=== PATIENT | female | born 1965 | race Caucasian/White ===

== ENCOUNTER 2017-02-22 14:20 | Inpatient (IN) | payer MEDICARE, OTHER ==
[2017-02-22 14:20] VITALS: BMI 49.6
[2017-02-22] MEDS ORDERED: Albuterol-Ipratrop 3 mg / 0.5 (3 ml) UD IH STA ×3 (14:47→14:48)
--- NOTE | 2017-02-22 14:51 | C.PDOC ---
History Of Present Illness 51 y/o F c PMHx asthma, chronic back pain p/w shortness of breath x 1 week. Reports shortness of breath typical of her asthma. She reports cough with bilateral thoracic pain worse with coughing or movement. She reports subjective fever. Denies vomiting, diarrhea, leg swelling, injury. Never intubated or admitted for asthma. Time Seen by Provider: 02/22/17 14:38 Chief Complaint (Nursing): Shortness Of Breath Past Medical History Vital Signs: Last Vital Signs Temp 98.3 F 02/22/17 17:24 Pulse 109 H 02/22/17 17:24 Resp 20 02/22/17 17:24 BP 126/48 L 02/22/17 17:24 Pulse Ox 94 L 02/22/17 18:01 - Medical History PMH: Anxiety, Asthma, Back Problems, COPD, Depression, HTN Denies: Chronic Kidney Disease Surgical History: Hernia Repair - [facility] Procedures OTH & OPEN REP OTH HERNIA OF ANTER ABD WALL W [facility] OR PROSTH (11/02/13) Family History: States: No Known Family Hx - Social History Hx Tobacco Use: No Hx Alcohol Use: No Hx Substance Use: No - Immunization History Hx Tetanus Toxoid Vaccination: No Hx Influenza Vaccination: Yes Hx Pneumococcal Vaccination: No Review Of Systems Except As Marked, All Systems Reviewed And Found Negative. Respiratory: Positive for: Shortness of Breath Gastrointestinal: Negative for: Vomiting Genitourinary: Negative for: Dysuria Physical Exam - Physical Exam Additional Physical Exam Comments: Constitutional: No acute distress. Obese Head: Normocephalic. Atraumatic. Eyes: PERRL. EOMI ENT: Moist mucous membranes. Neck: Supple. Cardiovascular: Regular rate. Radial pulses 2+ bilaterally. Chest: No tenderness. Respiratory: Decreased breath sounds diffusely. GI: Soft. Nontender. Nondistended. Back: No CVA tenderness. No midline tenderness. Musculoskeletal: No tenderness or swelling of extremities. Skin: No rash. Neurologic: Alert, no focal deficit. ED Course And Treatment - Laboratory Results Result Diagrams: 02/22/17 15:21 02/22/17 16:11 O2 Sat by Pulse Oximetry: 94 Medical Decision Making Medical Decision Making: EKG: Ordered, reviewed, and independently interpreted the EKG. Rate: 100 BPM Rhythm: Sinus Rhythm Interpretation: No ST-segment elevations. Accession No. : [id number] Patient Name / ID : HARINI CALIXTO / [id number] Exam Date : 02/22/2017 14:51:27 ( Approved ) Study Comment : Sex / Age : F / 51Y Creator : Meek Coombs Dictator : Meek Coombs Welder Fitter Arc : Social Insurance Administrator : Meek Coombs Approver2 : Report Date : 02/22/2017 17:58:35 My Comment : HISTORY: dyspnea, L sided rib pain COMPARISON: Comparison is made to the previous study dated 11/02/2013 TECHNIQUE: Chest PA and lateral FINDINGS: LUNGS: No evidence of new infiltrate or consolidation in the lungs. Mild hyperinflation of the lungs and prominent lung markings are again seen. PLEURA: No significant pleural effusion identified. No pneumothorax apparent. CARDIOVASCULAR: Normal. OSSEOUS STRUCTURES: No significant abnormalities. VISUALIZED UPPER ABDOMEN: Normal. OTHER FINDINGS: None. IMPRESSION: No significant interval change since the previous exam. Patient with normal vital signs at bedside. Pulse oximetry on room air 98% with good waveform. Patient had an episode of abdominal pain which she states occurs "all the time" at home. I administered morphine for this. Otherwise, the patient is without acute CXR findings, pulse oximetry normal. Will discharge, continue steroids, albuterol, and Z pack. I instructed her to obtain a referral for general surgery from her PMD for her chronic abdominal pains. Disposition - Disposition Disposition: HOME/ ROUTINE Disposition Time: 17:19 Condition: STABLE Additional Instructions: Follow up with General Surgery for your chronic abdominal pains. Prescriptions: Albuterol 0.083% [Albuterol Sulfate 3 Ml] 3 ml IH Q4 #150 neb Prednisone [Deltasone] 3 tab PO DAILY #12 tablet Azithromycin [Zithromax] 2 tab PO DAILY #6 tab Instructions: Asthma (ED) - Clinical Impression Clinical Impression: Asthma exacerbation
[2017-02-22] MEDS ORDERED: Albuterol-Ipratrop 3 mg / 0.5 (3 ml) UD ONE ×2 (15:01→15:13)
[2017-02-22 15:30] LABS: BASO # 0.1 K/uL (0.0-0.2); BASO % 0.6 % (0.0-2.0); EOS # 0.1 K/uL (0.0-0.7); EOS % 0.9 % (0.0-4.0); HEMATOCRIT 43.2 % (34.0-47.0); LYMPH # 0.8 K/uL (1.0-4.3); LYMPH % 6.1 % (20.0-40.0); MEAN CELL VOLUME 82.4 fL (81.0-99.0); MEAN CORPUSCULAR HEMOGLOBIN 26.6 pg (27.0-31.0); MEAN CORPUSCULAR HGB CONC 32.3 g/dL (33.0-37.0); MEAN PLATELET VOLUME 9.1 fL (7.2-11.7); MONO # 0.5 K/uL (0.0-0.8); MONO % 4.1 % (0.0-10.0); PLATELET COUNT 303 K/uL (130-400); RED CELL DISTRIBUTION WIDTH 14.9 % (11.5-14.5); WHITE BLOOD COUNT 12.4 K/uL (4.8-10.8)
[2017-02-22 16:22] LABS: CHLORIDE 99 mmol/L (98-107); SODIUM 135 mmol/L (132-148)
[2017-02-22 16:23] LABS: POTASSIUM 3.8 mmol/L (3.6-5.2)
[2017-02-22 16:25] LABS: ALKALINE PHOSPHATASE 82 U/L (38-126); ALT/SGPT 13 U/L (9-52); AST/SGOT 19 U/L (14-36); BILIRUBIN,TOTAL 0.8 mg/dL (0.2-1.3); BLOOD UREA NITROGEN 10 mg/dL (7-17); CARBON DIOXIDE 21 mmol/L (22-30); GFR AFRICAN-AMERICAN > 60; GLUCOSE,RANDOM 135 mg/dL (65-105); TOTAL PROTEIN 7.4 g/dL (6.3-8.3)
[2017-02-22 16:26] LABS: CALCIUM 8.6 mg/dl (8.6-10.4)
[2017-02-22 17:49] LABS: EOSINOPHIL 2 % (0-4); NEUTROPHIL 83 % (50-75); TOTAL CELLS COUNTED 100
--- NOTE | 2017-02-22 18:00 | RAD ---
HISTORY: dyspnea, L sided rib pain COMPARISON: Comparison is made to the previous study dated 11/02/2013 TECHNIQUE: Chest PA and lateral FINDINGS: LUNGS: No evidence of new infiltrate or consolidation in the lungs. Mild hyperinflation of the lungs and prominent lung markings are again seen. PLEURA: No significant pleural effusion identified. No pneumothorax apparent. CARDIOVASCULAR: Normal. OSSEOUS STRUCTURES: No significant abnormalities. VISUALIZED UPPER ABDOMEN: Normal. OTHER FINDINGS: None. IMPRESSION: No significant interval change since the previous exam.
[2017-02-22] MEDS ORDERED: Morphine 4 MG/ML VIAL ONE (18:17)
--- NOTE | 2017-02-22 21:14 | CP.PCM.HP ---
<Erica Lanier - Last Filed: 02/22/17 21:17> History of Present Illness - History of Present Illness History of Present Illness: CC: "cough and shortness of breath" 51 year old female with PMHx of COPD/emphysema, asthma, chronic back pain, obesity, GERD, depression and anxiety presents for 2 week history of worsening cough and SOB. Patient reports she has been feeling SOB for the past 2 weeks. She uses her inhaler on a daily basis, a couple of times a day. She has not been ambulating much, but when she does she becomes SOB. Admits she came to the hospital because SOB began to worsen over the past 2 days. She reports waking up in the middle of the night with cough and SOB. Admits to subjective fevers yesterday. She is experiencing bilateral rib pain and abdominal pain every time she coughs. Pain is reproducible only with cough. She admits to sick contact (daughter had the flu). She is also experiencing nasal congestion and sore throat for the past 2 days. Denies chills, nausea, vomiting, headache, body aches, dysuria. Admits to chronic constipation. She smokes daily and ambulates with cane. She has never been intubated and denies O2 at home. PMHx: COPD/emphysema, asthma, obesity, GERD, depression and anxiety, chronic back pain, OA. Medications: Albuterol nebs, rescue inhaler, prednisone. Allergies: NKDA Surgery Hx: Bariatric Sx, umbilical Hernia repair, hysterectomy. Social Hx: smokes 2 cigarets per day for the past 20 years, denies alcohol or illicit drug use. Family Hx: mother with brain tumor, father with tobacco abuse. PMD: Dr. Jeong. Present on Admission - Present on Admission Any Indicators Present on Admission: No Review of Systems - Constitutional Constitutional: Fever. absent: Chills, Headache, Night Sweats - EENT Eyes: absent: Change in Vision Ears: absent: Dizziness Nose/Mouth/Throat: Nasal Congestion, Nasal Discharge, Sinus Pressure, Sore Throat. absent: Epistaxis - Cardiovascular Cardiovascular: Chest Pain, Dyspnea on Exertion. absent: Chest Pain at Rest, Chest Pain with Activity, Edema, Syncope - Respiratory Respiratory: Cough, Dyspnea, Dyspnea on Exertion, Wheezing. absent: Excessive Mucous Production - Gastrointestinal Gastrointestinal: Constipation. absent: Abdominal Pain, Bloating, Diarrhea, Nausea, Vomiting - Genitourinary Genitourinary: absent: Difficulty Urinating, Dysuria - Musculoskeletal Musculoskeletal: Back Pain. absent: Arthralgias, Numbness, Tingling - Integumentary Integumentary: Dry Skin. absent: Lesions - Neurological Neurological: absent: Numbness, Tingling, Weakness - Psychiatric Psychiatric: Anxiety, Depression - Endocrine Endocrine: Fatigue. absent: Palpitations - Hematologic/Lymphatic Hematologic: absent: Easy Bruising, Lymphadenopathy Past Patient History - Past Medical History & Family History Past Medical History?: Yes - Past Social History Smoking Status: Light Smoker < 10 Cigarettes Daily - CARDIAC Hx Hypertension: Yes - PULMONARY Hx Asthma: Yes Hx Chronic Obstructive Pulmonary Disease (COPD): Yes - NEUROLOGICAL Hx Neurological Disorder: No - HEENT Hx HEENT Problems: No - RENAL Hx Chronic Kidney Disease: No - ENDOCRINE/METABOLIC Hx Endocrine Disorders: No - HEMATOLOGICAL/ONCOLOGICAL Hx Blood Disorders: No - INTEGUMENTARY Hx Dermatological Problems: No - MUSCULOSKELETAL/RHEUMATOLOGICAL Hx Musculoskeletal Disorders: Yes Hx Back Pain: Yes - GASTROINTESTINAL Hx Gastrointestinal Disorders: Yes Other/Comment: HISTORY OF HERNIA - GENITOURINARY/GYNECOLOGICAL Hx Genitourinary Disorders: No - PSYCHIATRIC Hx Anxiety: Yes Hx Depression: Yes Hx Substance Use: No - SURGICAL HISTORY Hx Surgeries: Yes Hx Hysterectomy: Yes Other/Comment: ABDOMINAL HERNIA REPAIR ALMOST 2 YEARS AGO PER PT - ANESTHESIA Hx Anesthesia: Yes Hx Anesthesia Reactions: No Meds Home Medications: Home Medication List Medication Instructions Recorded Confirmed Type Albuterol 0.083% [Albuterol 3 ml IH Q4 #150 neb 02/22/17 Rx Sulfate 3 Ml] Azithromycin [Zithromax] 2 tab PO DAILY #6 tab 02/22/17 Rx Prednisone [Deltasone] 3 tab PO DAILY #12 tablet 02/22/17 Rx Allergies/Adverse Reactions: Allergies Allergy/AdvReac Type Severity Reaction Status Date / Time No Known Allergies Allergy Verified 02/22/17 14:26 Physical Exam - Constitutional Appears: Non-toxic, In Acute Distress, Agitated - Head Exam Head Exam: NORMAL INSPECTION, NORMOCEPHALIC - Eye Exam Eye Exam: EOMI, Normal appearance - ENT Exam ENT Exam: Mucous Membranes Moist - Neck Exam Neck exam: Positive for: Full Rom, Normal Inspection - Respiratory Exam Respiratory Exam: Chest Wall Tenderness, Decreased Breath Sounds, Clear to Auscultation Bilateral. absent: Rales, Rhonchi, Wheezes - Cardiovascular Exam Cardiovascular Exam: REGULAR RHYTHM, +S1, +S2 - GI/Abdominal Exam GI & Abdominal Exam: Normal Bowel Sounds, Soft. absent: Distended, Guarding, Hernia, Tenderness - Extremities Exam Extremities exam: Positive for: full ROM, normal inspection, tenderness. Negative for: pedal edema - Back Exam Back exam: NORMAL INSPECTION. absent: FULL ROM, rash noted - Neurological Exam Neurological exam: Alert, Oriented x3 - Psychiatric Exam Psychiatric exam: Agitated, Anxious - Skin Skin Exam: Dry, Normal Color, Warm Results - Vital Signs Recent Vital Signs: Last Vital Signs Temp 98.4 F 02/22/17 18:44 Pulse 100 H 02/22/17 18:44 Resp 18 02/22/17 18:44 BP 138/67 02/22/17 18:44 Pulse Ox 94 L 02/22/17 18:44 - Labs Result Diagrams: 02/22/17 15:21 02/22/17 16:11 Assessment & Plan (1) Asthma exacerbation Assessment and Plan: Peak flow on admission 200. Patient received 3 Duoneb treatments in the ED, prednisone, tessalon pearls. CXR on admission: No evidence of new infiltrate or consolidation in the lungs. Mild hyperinflation of the lungs and prominent lung markings are again seen. Duoneb Q6H JULIETA Solu-Metdrol 40 mg IVP Q8H Guaifenesin/Codeine Q6H PRN Status: Acute (2) COPD (chronic obstructive pulmonary disease) with emphysema Assessment and Plan: See plan above Status: Acute (3) URI (upper respiratory infection) Assessment and Plan: Azithromycin 500 mg PO Daily Status: Acute (4) Rib pain Assessment and Plan: Secondary to cough. Continue antitussive as above. Motrin 400 mg PO Q6 PRN pain Status: Acute (5) Depression Assessment and Plan: Patient does not know her home medication. Will monitor mood for changes. Status: Acute (6) Anxiety Assessment and Plan: She does not take anything for anxiety. Will monitor mood for changes. Status: Acute (7) Prophylactic measure Assessment and Plan: Pepcid 30 mg PO BID Heparin 5000 SC Q12H SCDs Status: Acute <Bossman Green - Last Filed: 02/23/17 06:09> Results - Vital Signs Recent Vital Signs: Last Vital Signs Temp 97.9 F 02/23/17 00:00 Pulse 99 H 02/23/17 01:04 Resp 22 02/23/17 01:52 BP 118/65 02/23/17 00:00 Pulse Ox 97 02/23/17 01:52 - Labs Result Diagrams: 02/22/17 15:21 02/22/17 16:11 Assessment & Plan - Date & Time Date: 02/23/17 (I have seen and examined the patient. I agree with the findings and plan of care as documented by Dr. Lanier. Patient with asthma exacerbation and history of COPD. Also with URI. Azithromycin. Solumedrol. Nebs and Oxygen. Monitor for acute changes.) Time: 06:08 Attending/Attestation - Attestation I have personally seen and examined this patient.: Yes I have fully participated in the care of the patient.: Yes I have reviewed all pertinent clinical information: Yes
[2017-02-22] MEDS: guaiFENesin-Codeine 100-10mg/5ml Syrup (10ml) UD PO PRN (21:18)
[2017-02-23] MEDS: Albuterol-Ipratrop 3 mg / 0.5 (3 ml) UD INH SCH ×4 (01:04→19:39)
[2017-02-23] MEDS: MethylPREDNISolone 40 mg Vial IVP SCH ×3 (01:14→17:20)
[2017-02-23] MEDS: guaiFENesin-Codeine 100-10mg/5ml Syrup (10ml) UD PO PRN ×3 (03:18→18:31)
[2017-02-23] MEDS: Benzocaine/Menthol (Cepacol) Lozenge MT PRN ×6 (03:19→22:39)
[2017-02-23] MEDS: Fluticasone Nasal 50 mcg/Spray NAS SCH ×2 (03:19→11:49)
[2017-02-23 08:06] LABS: BASO % 0.3 % (0.0-2.0); EOS % 0.2 % (0.0-4.0); HEMATOCRIT 40.9 % (34.0-47.0); LYMPH # 0.6 K/uL (1.0-4.3); LYMPH % 4.5 % (20.0-40.0); MEAN CELL VOLUME 82.6 fL (81.0-99.0); MEAN CORPUSCULAR HEMOGLOBIN 26.9 pg (27.0-31.0); MEAN CORPUSCULAR HGB CONC 32.5 g/dL (33.0-37.0); MEAN PLATELET VOLUME 9.1 fL (7.2-11.7); MONO # 0.2 K/uL (0.0-0.8); MONO % 1.6 % (0.0-10.0); PLATELET COUNT 329 K/uL (130-400); RED CELL DISTRIBUTION WIDTH 14.5 % (11.5-14.5); WHITE BLOOD COUNT 13.4 K/uL (4.8-10.8)
[2017-02-23 08:24] LABS: CHLORIDE 98 mmol/L (98-107); POTASSIUM 4.5 mmol/L (3.6-5.2); SODIUM 133 mmol/L (132-148)
[2017-02-23 08:26] LABS: ALB/GLOB RATIO 1.1 (1.0-2.1); AST/SGOT 22 U/L (14-36); BILIRUBIN,TOTAL 0.8 mg/dL (0.2-1.3); CARBON DIOXIDE 19 mmol/L (22-30); GFR AFRICAN-AMERICAN > 60; TOTAL PROTEIN 7.5 g/dL (6.3-8.3)
[2017-02-23 08:27] LABS: ALKALINE PHOSPHATASE 93 U/L (38-126); ALT/SGPT 13 U/L (9-52); BLOOD UREA NITROGEN 15 mg/dL (7-17); CALCIUM 9.2 mg/dl (8.6-10.4); GLUCOSE,RANDOM 186 mg/dL (65-105); MAGNESIUM 1.9 mg/dL (1.6-2.3); PHOSPHOROUS 2.7 mg/dL (2.5-4.5)
--- NOTE | 2017-02-23 09:15 | CP.PCM.PN ---
<Torito Blue - Last Filed: 02/23/17 19:54> Subjective - Date & Time of Evaluation Date of Evaluation: 02/23/17 Time of Evaluation: 07:55 - Subjective Subjective: PGY-1 medicine note - Dr. Whitmore service Patient seen and examined at bedside, chart reviewed and case discussed. Her cough has not improved and she states that her rib pain had gone away but returned with a bout of heavy coughing. She has received some breathing treatments for shortness of breath and while they have helped, they havent provided complete relief. Admits to tenderness of Right neck. She denies fever, headache, body aches, abdominal pain, nausea, vomiting, diarrhea, constipation, dysuria and any other acute complaints at this time. Objective - Vital Signs/Intake and Output Vital Signs (last 24 hours): Temp Pulse Resp BP Pulse Ox 97.9 F 99 H 22 118/65 97 02/23/17 00:00 02/23/17 01:04 02/23/17 01:52 02/23/17 00:00 02/23/17 01:52 Intake and Output: 02/23/17 02/23/17 06:59 18:59 Intake Total 240 Balance 240 - Medications Medications: Current Medications Albuterol/Ipratropium (Duoneb 3 Mg/0.5 Mg (3 Ml) Ud) 3 ml INH RQ6 JULIETA Last Admin: 02/23/17 08:02 Dose: 3 ml Azithromycin (Zithromax) 500 mg PO DAILY JULIETA Stop: 02/28/17 10:01 Benzocaine/Menthol (Cepacol Sore Throat) 1 vikas MT Q1 PRN PRN Reason: Sore Throat Last Admin: 02/23/17 08:37 Dose: 1 vikas Famotidine (Pepcid) 20 mg PO BID JULIETA Last Admin: 02/23/17 01:25 Dose: 20 mg Fluticasone Propionate (Flonase) 1 spr JOSH DAILY JULIETA Last Admin: 02/23/17 03:19 Dose: 1 spray Guaifenesin/Codeine Phosphate (Guaifenesin/Codeine) 10 ml PO Q6H PRN PRN Reason: Cough and congestion Last Admin: 02/23/17 03:18 Dose: 10 ml Heparin Sodium (Porcine) (Heparin) 5,000 units SC Q12 JULIETA Last Admin: 02/23/17 00:03 Dose: Not Given Ibuprofen (Motrin Tab) 400 mg PO Q6H PRN PRN Reason: Pain, moderate (4-7) Methylprednisolone (Solu-Medrol) 40 mg IVP Q8H [facility] Last Admin: 02/23/17 08:36 Dose: 40 mg - Labs Labs: 02/23/17 07:50 02/23/17 07:50 - Additional Findings Additional findings: - Constitutional Appears: Non-toxic, No Acute Distress - Head Exam Head Exam: NORMAL INSPECTION, NORMOCEPHALIC - Eye Exam Eye Exam: EOMI, Normal appearance - ENT Exam ENT Exam: Mucous Membranes Moist -Tender to palpation of Right neck - Neck Exam Neck exam: Positive for: Full Rom, Normal Inspection - Respiratory Exam Respiratory Exam: Chest Wall Tenderness, Decreased Breath Sounds, Clear to Auscultation Bilateral. absent: Rales, Rhonchi, Wheezes - Cardiovascular Exam Cardiovascular Exam: REGULAR RHYTHM, +S1, +S2 - GI/Abdominal Exam GI & Abdominal Exam: Normal Bowel Sounds, Soft. absent: Distended, Guarding, Hernia, Tenderness - Extremities Exam Extremities exam: Positive for: full ROM, normal inspection, tenderness. Negative for: pedal edema - Back Exam Back exam: NORMAL INSPECTION. absent: FULL ROM, rash noted - Neurological Exam Neurological exam: Alert, Oriented x3 - Psychiatric Exam Psychiatric exam: Agitated, Anxious - Skin Skin Exam: Dry, Normal Color, Warm Assessment and Plan - Assessment and Plan (Free Text) Assessment: (1) Asthma exacerbation Assessment and Plan: Peak flow on admission 200. Patient received 3 Duoneb treatments in the ED, prednisone, tessalon pearls. CXR on admission: No evidence of new infiltrate or consolidation in the lungs. Mild hyperinflation of the lungs and prominent lung markings are again seen. Duoneb Q6H JULIETA Solu-Metdrol 40 mg IVP Q8H Guaifenesin/Codeine Q6H PRN Status: Acute (2) COPD (chronic obstructive pulmonary disease) with emphysema Assessment and Plan: See plan above Status: Acute (3) URI (upper respiratory infection) Assessment and Plan: 02/23: muffling of voice. Right throat tenderness. f/u Vanco trough Wed 4/5 am -CT Neck soft tissue - There is asymmetry of the pyriform sinuses left-side, could represent collected secretion within the left pyriform sinus. Asymmetry of the vallecula containing possible residual and or retained secretion. The consider direct visualization. Mucoperiosteal inflammatory changes within the aforementioned paranasal sinuses as described. see full report -CT Chest- Patchy right lower lobe opacity -possible pneumonia. Question focal soft tissue measuring approximately 2.1 cm within the right lateral breast; recommend correlation with dedicated breast imaging to exclude possibility of pulmonary nodule/mass. see full report Partially imaged hepatomegaly. -WBC 13.4 with 16 bands (possibly due to steroids) - continue to monitor -Start: Zosyn 3.375 IVPB Q6H (02/23) -Start: Vanco 1Gm IVPB BID (02/23) -Stop: Azithromycin 500 mg PO Daily (02/23) Status: Acute (4) Rib pain Assessment and Plan: Secondary to cough. Continue antitussive as above. Motrin 400 mg PO Q6 PRN pain Status: Acute (5) Depression Assessment and Plan: Patient does not know her home medication. Will monitor mood for changes. Status: Acute (6) Anxiety Assessment and Plan: She does not take anything for anxiety. Will monitor mood for changes. Status: Acute (7) Prophylactic measure Assessment and Plan: Pepcid 30 mg PO BID Heparin 5000 SC Q12H SCDs Status: Acute <Torito Hess H - Last Filed: 02/24/17 09:09> Objective - Vital Signs/Intake and Output Vital Signs (last 24 hours): Temp Pulse Resp BP Pulse Ox 98 F 89 20 132/62 94 L 02/23/17 23:41 02/24/17 01:36 02/23/17 23:41 02/23/17 23:41 02/23/17 23:41 Intake and Output: 02/24/17 02/24/17 06:59 18:59 Intake Total 1270 Balance 1270 - Medications Medications: Current Medications Albuterol/Ipratropium (Duoneb 3 Mg/0.5 Mg (3 Ml) Ud) 3 ml INH RQ6 JULIETA Last Admin: 02/24/17 08:07 Dose: 3 ml Benzocaine/Menthol (Cepacol Sore Throat) 1 vikas MT Q1 PRN PRN Reason: Sore Throat Last Admin: 02/23/17 22:39 Dose: 1 vikas Famotidine (Pepcid) 20 mg PO BID JULIETA Last Admin: 02/23/17 17:20 Dose: 20 mg Fluticasone Propionate (Flonase) 1 spr JOSH DAILY [facility] Last Admin: 02/23/17 11:49 Dose: 2 spray Guaifenesin/Codeine Phosphate (Guaifenesin/Codeine) 10 ml PO Q6H PRN PRN Reason: Cough and congestion Last Admin: 02/23/17 18:31 Dose: 10 ml Heparin Sodium (Porcine) (Heparin) 5,000 units SC Q12 [facility] Last Admin: 02/23/17 22:39 Dose: Not Given Piperacillin Sod/Tazobactam (Sod 3.375 gm/ Sodium Chloride) 100 mls @ 200 mls/ hr IVPB Q6H [facility] Last Admin: 02/24/17 05:43 Dose: 200 mls/hr Vancomycin/Sodium Chloride (Vancocin) 200 mls @ 166.7 mls/hr IVPB BID [facility] Stop: 02/28/17 18:01 Last Admin: 02/23/17 18:13 Dose: 166.7 mls/hr Ibuprofen (Motrin Tab) 400 mg PO Q6H PRN PRN Reason: Pain, moderate (4-7) Last Admin: 02/23/17 22:37 Dose: 400 mg Methylprednisolone (Solu-Medrol) 40 mg IVP Q8H [facility] Last Admin: 02/24/17 08:42 Dose: 40 mg Attending/Attestation - Attestation I have personally seen and examined this patient.: Yes I have fully participated in the care of the patient.: Yes I have reviewed all pertinent clinical information, including history, physical exam and plan: Yes Notes (Text): Medical Attending: Patient was seen and examined by me. Agree with the above note by the resident The patient was complaing of neck/submandibular pain and it sounded as if her voice was muffled in nature. Will check imaging of the neck soft tissue CT as well as of the chest CT without contrast. Also start IV solumedrol and IV abx as well. The CT imaging did return later in the day and results as noted above. Continue to monitor respirations and also WBC, and peak flows thank you Torito Hess
[2017-02-23 09:44] LABS: NEUTROPHIL 75 % (50-75); TOTAL CELLS COUNTED 100
[2017-02-23 09:45] LABS: LARGE PLATELETS PRESENT
[2017-02-23] MEDS ORDERED: Dexamethasone 4 mg/1 ml IVP STA (10:59)
[2017-02-23] MEDS: Piperacillin/Tazobact 3.375 GM in Sodium Chloride 100 ML IVPB SCH ×3 (12:34→22:44)
--- NOTE | 2017-02-23 17:41 | CT ---
CT of the neck dated 02/23/2017. Contiguous helical/ transaxial sections of the neck performed in standard fashion without intravenous contrast material. Additional 2 dimensional sagittal and coronal reformats provided. . Coronal and sagittal reformats generated. Radiation dose: DLP 472.94 mGy-cm This CT exam was performed using one or more of the following dose reduction techniques: Automated exposure control, adjustment of the mA and/or kV according to patient size, and/or use of iterative reconstruction technique. Findings: The current study reveals asymmetry of the pyriform sinuses left-side of which is much smaller than the right. There is a somewhat convex appearance of the left aryepiglottic fold within area of low attenuation which could represent collection of secretions as well however the possibility of a mucosal lesion in this location must be considered. Directives visualization recommended. There is ill-defined soft tissue that changes within the vallecular likely representing residual and or retained secretion. Free margin of the epiglottis is poorly delineated as a result level appears grossly unremarkable so far as can be seen. True vocal cords appear symmetric. Multiple small nonspecific bilateral cervical lymph nodes are present. None of the lymph nodes appear pathologically enlarged and several also exhibit central areas of fat. The parotid and submandibular glands unremarkable without masses collections or calcifications. No calcifications are identified along the expected location of the submandibular or parotid duct. Evaluation of the thyroid gland is somewhat limited due to crossing streak and beam hardening artifact arising from dense clavicles and shoulder girdles. Note made of near-complete opacification of the ethmoid air complex and right chamber of the sphenoid sinus. Mild mucosal thickening both maxillary antra. Lung apices are clear. Mild multilevel degenerative spondylosis of the thoracic spine. . Impression: There is asymmetry of the pyriform sinuses left-side of which is smaller than the right with slight convex of and bowling of the medial surface of the left aryepiglottic fold within area of low attenuation. This could represent collected secretion within the left pyriform sinus however the possibility of a mucosal lesion cannot be excluded. Direct visualization could be performed to exclude mucosal lesion. There is also asymmetry of the vallecula containing what probably represents residual and or retained secretion as well. The consider direct visualization to confirm and exclude a mucosal Mucoperiosteal inflammatory changes within the aforementioned paranasal sinuses as described.
[2017-02-23] MEDS: Vancomycin 1 gm/NS 200 ml 200 ML IVPB SCH (18:13)
--- NOTE | 2017-02-23 18:21 | CT ---
CT chest without IV contrast Indication: Shortness of breath Technique: Contiguous axial images were obtained through the chest without intravenous contrast enhancement. Sagittal and coronal reconstructions were generated and reviewed. Radiation dose (DLP): 967.19 MGy-cm. Comparison: Chest x-ray performed 02/22/17 Findings: Examination limited by habitus. Visualized portions of the inferior thyroid gland appear unremarkable. The unenhanced mediastinal and hilar vascular structures appear within normal limits. The heart appears within normal limits of size. Evaluation for adenopathy is limited by lack of IV contrast, in particular hilar adenopathy. No bulky adenopathy appreciated. Patchy right lower lobe opacity suspected to reflect pneumonia. No pleural effusion. No pneumothorax. Question focal soft tissue measuring approximately 2.1 cm within the right lateral breast (series 4, image 41); recommend correlation with dedicated breast imaging to exclude possibility of pulmonary nodule/mass. Small hiatal hernia. Limited visualization of the noncontrast upper abdomen demonstrates partially imaged hepatomegaly. No acute osseous abnormality is detected. Impression: Patchy right lower lobe opacity suspected to reflect pneumonia. Recommend follow-up upon completion of treatment for acute symptoms in order to ensure complete resolution. Question focal soft tissue measuring approximately 2.1 cm within the right lateral breast; recommend correlation with dedicated breast imaging to exclude possibility of pulmonary nodule/mass. Partially imaged hepatomegaly.
--- NOTE | 2017-02-23 23:11 | CARD ---
APPROVED REPORT EKG Measurement Heart [id number] CA [id number] <Conclusion> Sinus rhythm with short CA Cannot rule out Anterior infarct, age undetermined Abnormal ECG
[2017-02-24] MEDS: MethylPREDNISolone 40 mg Vial IVP SCH ×3 (00:24→17:05)
[2017-02-24] MEDS: Albuterol-Ipratrop 3 mg / 0.5 (3 ml) UD INH SCH ×4 (02:06→19:38)
[2017-02-24] MEDS: Piperacillin/Tazobact 3.375 GM in Sodium Chloride 100 ML IVPB SCH ×4 (05:43→22:06)
--- NOTE | 2017-02-24 07:55 | CP.PCM.PN ---
<Torito Blue - Last Filed: 02/24/17 17:21> Subjective - Date & Time of Evaluation Date of Evaluation: 02/24/17 Time of Evaluation: 07:15 - Subjective Subjective: PGY-1 medicine note - Dr. Whitmore service Patient seen and examined at bedside, chart reviewed and case discussed. No overnight events per nursing. Her cough has improved but her ear pain and rib pain remain unchanged. She continues to receive breathing treatments which are helping. Her PMD had told her to get her urine checked for a possible infection previously. She denies fever, abdominal pain, nausea, vomiting, diarrhea, constipation, dysuria and any other acute complaints at this time. Objective - Vital Signs/Intake and Output Vital Signs (last 24 hours): Temp Pulse Resp BP Pulse Ox 98 F 89 20 132/62 94 L 02/23/17 23:41 02/24/17 01:36 02/23/17 23:41 02/23/17 23:41 02/23/17 23:41 Intake and Output: 02/24/17 02/24/17 06:59 18:59 Intake Total 1270 Balance 1270 - Medications Medications: Current Medications Albuterol/Ipratropium (Duoneb 3 Mg/0.5 Mg (3 Ml) Ud) 3 ml INH RQ6 [facility] Last Admin: 02/24/17 02:06 Dose: 3 ml Benzocaine/Menthol (Cepacol Sore Throat) 1 vikas MT Q1 PRN PRN Reason: Sore Throat Last Admin: 02/23/17 22:39 Dose: 1 vikas Famotidine (Pepcid) 20 mg PO BID [facility] Last Admin: 02/23/17 17:20 Dose: 20 mg Fluticasone Propionate (Flonase) 1 spr JOSH DAILY [facility] Last Admin: 02/23/17 11:49 Dose: 2 spray Guaifenesin/Codeine Phosphate (Guaifenesin/Codeine) 10 ml PO Q6H PRN PRN Reason: Cough and congestion Last Admin: 02/23/17 18:31 Dose: 10 ml Heparin Sodium (Porcine) (Heparin) 5,000 units SC Q12 [facility] Last Admin: 02/23/17 22:39 Dose: Not Given Piperacillin Sod/Tazobactam (Sod 3.375 gm/ Sodium Chloride) 100 mls @ 200 mls/ hr IVPB Q6H [facility] Last Admin: 02/24/17 05:43 Dose: 200 mls/hr Vancomycin/Sodium Chloride (Vancocin) 200 mls @ 166.7 mls/hr IVPB BID [facility] Stop: 02/28/17 18:01 Last Admin: 02/23/17 18:13 Dose: 166.7 mls/hr Ibuprofen (Motrin Tab) 400 mg PO Q6H PRN PRN Reason: Pain, moderate (4-7) Last Admin: 02/23/17 22:37 Dose: 400 mg Methylprednisolone (Solu-Medrol) 40 mg IVP Q8H [facility] Last Admin: 02/24/17 00:24 Dose: 40 mg - Additional Findings Additional findings: - Constitutional Appears: Non-toxic, No Acute Distress - Head Exam Head Exam: NORMAL INSPECTION, NORMOCEPHALIC - Eye Exam Eye Exam: EOMI, Normal appearance - ENT Exam ENT Exam: Mucous Membranes Moist -Tender to palpation of Right neck - Neck Exam Neck exam: Positive for: Full Rom, Normal Inspection - Respiratory Exam Respiratory Exam: Chest Wall Tenderness (left sided, Ribs 4-5), Decreased Breath Sounds, Wheezes. absent: Rales, Rhonchi - Cardiovascular Exam Cardiovascular Exam: REGULAR RHYTHM, +S1, +S2 - GI/Abdominal Exam GI & Abdominal Exam: Normal Bowel Sounds, Soft. absent: Distended, Guarding, Hernia, Tenderness - Extremities Exam Extremities exam: Positive for: full ROM, normal inspection, tenderness. Negative for: pedal edema - Back Exam Back exam: NORMAL INSPECTION. absent: FULL ROM, rash noted - Neurological Exam Neurological exam: Alert, Oriented x3 - Psychiatric Exam Psychiatric exam: Agitated, Anxious - Skin Skin Exam: Dry, Normal Color, Warm Assessment and Plan - Assessment and Plan (Free Text) Assessment: Asthma exacerbation Assessment and Plan: 02/24: Patient responding well to tx. Peak flow on admission 200. Patient received 3 Duoneb treatments in the ED, prednisone, tessalon pearls. CXR on admission: No evidence of new infiltrate or consolidation in the lungs. Mild hyperinflation of the lungs and prominent lung markings are again seen. 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 See plan above Status: Acute URI (upper respiratory infection) Assessment and Plan: 02/23-02/24: Muffling of voice persists. f/u Vanco trough Wed 4/5 am. WBC 19, uptrending (likely due to steroids). Continue IV Abx. -ENT Consult, Dr. Delvalle, f/u recs. -CT Neck soft tissue - There is asymmetry of the pyriform sinuses left-side, could represent collected secretion within the left pyriform sinus. Asymmetry of the vallecula containing possible residual and or retained secretion. The consider direct visualization. Mucoperiosteal inflammatory changes within the aforementioned paranasal sinuses as described. see full report -CT Chest- Patchy right lower lobe opacity -possible pneumonia. Question focal soft tissue measuring approximately 2.1 cm within the right lateral breast; recommend correlation with dedicated breast imaging to exclude possibility of pulmonary nodule/mass. see full report Partially imaged hepatomegaly. -Zosyn 3.375 IVPB Q6H (02/23) -Vanco 1Gm IVPB BID (02/23) -Stop: Azithromycin 500 mg PO Daily (02/23) Status: Acute Leukocytosis 02/24: WBC 19, uptrending (likely due to steroids). Continue IV Abx. -Blood culture- negative x 1d f/u UC f/u UA -Zosyn 3.375 IVPB Q6H (02/23) -Vanco 1Gm IVPB BID (02/23) Rib pain Assessment and Plan: Secondary to cough. Continue antitussive as above. Motrin 400 mg PO Q6 PRN pain Status: Acute Depression Assessment and Plan: Patient does not know her home medication. Will monitor mood for changes. Status: Acute Anxiety Assessment and Plan: She does not take anything for anxiety. Will monitor mood for changes. Status: Acute Prophylactic measure Assessment and Plan: Pepcid 30 mg PO BID Heparin 5000 SC Q12H SCDs Status: Acute <Torito Hess - Last Filed: 02/24/17 19:13> Objective - Vital Signs/Intake and Output Vital Signs (last 24 hours): Temp Pulse Resp BP Pulse Ox 98.3 F 90 20 112/64 96 02/24/17 16:00 02/24/17 16:00 02/24/17 16:00 02/24/17 16:00 02/24/17 16:00 Intake and Output: 02/24/17 02/25/17 18:59 06:59 Intake Total 625 Balance 625 - Medications Medications: Current Medications Albuterol/Ipratropium (Duoneb 3 Mg/0.5 Mg (3 Ml) Ud) 3 ml INH RQ6 [facility] Last Admin: 02/24/17 14:09 Dose: 3 ml Benzocaine/Menthol (Cepacol Sore Throat) 1 vikas MT Q1 PRN PRN Reason: Sore Throat Last Admin: 02/23/17 22:39 Dose: 1 vikas Famotidine (Pepcid) 20 mg PO BID [facility] Last Admin: 02/24/17 18:05 Dose: 20 mg Fluticasone Propionate (Flonase) 1 spr JOSH DAILY [facility] Last Admin: 02/24/17 11:15 Dose: 2 spray Guaifenesin/Codeine Phosphate (Guaifenesin/Codeine) 10 ml PO Q6H PRN PRN Reason: Cough and congestion Last Admin: 02/24/17 11:23 Dose: 10 ml Heparin Sodium (Porcine) (Heparin) 5,000 units SC Q12 [facility] Last Admin: 02/24/17 11:15 Dose: Not Given Piperacillin Sod/Tazobactam (Sod 3.375 gm/ Sodium Chloride) 100 mls @ 200 mls/ hr IVPB Q6H [facility] Last Admin: 02/24/17 17:00 Dose: 200 mls/hr Vancomycin/Sodium Chloride (Vancocin) 200 mls @ 166.7 mls/hr IVPB BID [facility] Stop: 02/28/17 18:01 Last Admin: 02/24/17 18:05 Dose: 166.7 mls/hr Ibuprofen (Motrin Tab) 400 mg PO Q6H PRN PRN Reason: Pain, moderate (4-7) Last Admin: 02/23/17 22:37 Dose: 400 mg Methylprednisolone (Solu-Medrol) 40 mg IVP Q8H [facility] Last Admin: 02/24/17 17:05 Dose: 40 mg - Labs Labs: 02/24/17 11:06 02/24/17 11:06 Attending/Attestation - Attestation I have personally seen and examined this patient.: Yes I have fully participated in the care of the patient.: Yes I have reviewed all pertinent clinical information, including history, physical exam and plan: Yes Notes (Text): Medical Attending: Patient was seen and examined by me. Agree with the above note by the resident. The patient had CT of the neck return, will try to get an ENT evaluation. The CT of the chest showing that there is an area concerning for pneumonia as well. At this time continue with IV abx, lab work review shows that the WBC is higher this maybe due to solumedrol being given thank you Torito Hess
[2017-02-24] MEDS: Vancomycin 1 gm/NS 200 ml 200 ML IVPB SCH ×2 (11:14→18:05)
[2017-02-24] MEDS: Fluticasone Nasal 50 mcg/Spray NAS SCH (11:15)
[2017-02-24 11:16] LABS: BASO % 0.1 % (0.0-2.0); HEMATOCRIT 38.6 % (34.0-47.0); LYMPH # 1.1 K/uL (1.0-4.3); LYMPH % 5.7 % (20.0-40.0); MEAN CELL VOLUME 82.3 fL (81.0-99.0); MEAN CORPUSCULAR HEMOGLOBIN 26.5 pg (27.0-31.0); MEAN CORPUSCULAR HGB CONC 32.2 g/dL (33.0-37.0); MONO # 0.8 K/uL (0.0-0.8); PLATELET COUNT 323 K/uL (130-400); RED CELL DISTRIBUTION WIDTH 14.7 % (11.5-14.5)
[2017-02-24] MEDS: guaiFENesin-Codeine 100-10mg/5ml Syrup (10ml) UD PO PRN (11:23)
[2017-02-24 11:27] LABS: CHLORIDE 100 mmol/L (98-107)
[2017-02-24 11:28] LABS: POTASSIUM 4.2 mmol/L (3.6-5.2); SODIUM 136 mmol/L (132-148)
[2017-02-24 11:30] LABS: ALB/GLOB RATIO 1.2 (1.0-2.1); ALKALINE PHOSPHATASE 73 U/L (38-126); AST/SGOT 22 U/L (14-36); BILIRUBIN,TOTAL 0.4 mg/dL (0.2-1.3); BLOOD UREA NITROGEN 16 mg/dL (7-17); CARBON DIOXIDE 24 mmol/L (22-30); GFR AFRICAN-AMERICAN > 60; TOTAL PROTEIN 6.6 g/dL (6.3-8.3)
[2017-02-24 11:31] LABS: ALT/SGPT 16 U/L (9-52); GLUCOSE,RANDOM 217 mg/dL (65-105); MAGNESIUM 2.2 mg/dL (1.6-2.3); PHOSPHOROUS 2.3 mg/dL (2.5-4.5)
[2017-02-24 11:51] LABS: NEUTROPHIL 88 % (50-75); REACTIVE LYMPHOCYTES 1 % (0-0); TOTAL CELLS COUNTED 100
[2017-02-24 11:52] LABS: LARGE PLATELETS PRESENT
[2017-02-24 22:45] LABS: RBC URINE 1 /hpf (0-3); URINE BILIRUBIN NEGATIVE (NEGATIVE); URINE BLOOD NEGATIVE (NEGATIVE); URINE COLOR Yellow (YELLOW); URINE GLUCOSE (UA) 1+ mg/dL (Normal); URINE KETONE NEGATIVE (NEGATIVE); URINE LEUKOCYTE ESTERASE NEG Leu/uL (Negative); URINE PROTEIN NEGATIVE (NEGATIVE); URINE UROBILINOGEN NORMAL mg/dL (0.2-1.0); WBC URINE 6 /hpf (0-5)
[2017-02-25] MEDS: MethylPREDNISolone 40 mg Vial IVP SCH ×2 (00:19→09:01)
[2017-02-25] MEDS: Albuterol-Ipratrop 3 mg / 0.5 (3 ml) UD INH SCH ×4 (02:21→19:27)
[2017-02-25 06:05] LABS: BASO % 0.1 % (0.0-2.0); HEMATOCRIT 38.7 % (34.0-47.0); LYMPH # 1.4 K/uL (1.0-4.3); LYMPH % 6.6 % (20.0-40.0); MEAN CELL VOLUME 82.1 fL (81.0-99.0); MEAN CORPUSCULAR HEMOGLOBIN 26.8 pg (27.0-31.0); MEAN CORPUSCULAR HGB CONC 32.7 g/dL (33.0-37.0); MEAN PLATELET VOLUME 8.9 fL (7.2-11.7); MONO # 1.3 K/uL (0.0-0.8); MONO % 5.9 % (0.0-10.0); PLATELET COUNT 375 K/uL (130-400); RED CELL DISTRIBUTION WIDTH 14.9 % (11.5-14.5); WHITE BLOOD COUNT 21.2 K/uL (4.8-10.8)
[2017-02-25] MEDS: Piperacillin/Tazobact 3.375 GM in Sodium Chloride 100 ML IVPB SCH ×2 (06:05→10:05)
[2017-02-25 06:14] LABS: CHLORIDE 98 mmol/L (98-107); POTASSIUM 4.2 mmol/L (3.6-5.2); SODIUM 139 mmol/L (132-148)
[2017-02-25 06:17] LABS: ALB/GLOB RATIO 1.1 (1.0-2.1); CARBON DIOXIDE 28 mmol/L (22-30); GLUCOSE,RANDOM 185 mg/dL (65-105); TOTAL PROTEIN 6.8 g/dL (6.3-8.3)
[2017-02-25 06:18] LABS: ALKALINE PHOSPHATASE 95 U/L (38-126); AST/SGOT 23 U/L (14-36); BILIRUBIN,TOTAL 0.5 mg/dL (0.2-1.3); BLOOD UREA NITROGEN 16 mg/dL (7-17); CALCIUM 8.3 mg/dl (8.6-10.4); GFR AFRICAN-AMERICAN > 60; PHOSPHOROUS 3.2 mg/dL (2.5-4.5)
[2017-02-25 06:19] LABS: ALT/SGPT 32 U/L (9-52)
--- NOTE | 2017-02-25 07:29 | CP.PCM.PN ---
<Torito Blue - Last Filed: 02/25/17 16:20> Subjective - Date & Time of Evaluation Date of Evaluation: 02/25/17 Time of Evaluation: 07:35 - Subjective Subjective: PGY-1 medicine note - Dr. Whitmore service Patient seen and examined at bedside, chart reviewed and case discussed. Overall the patient feels slightly better. She reports that her cough has improved and her neck pain has decreased. She continues to receive breathing treatments which are helping, although she still breathes with some difficulty. After getting IV access in her right arm, she felt a burning sensation with an infusion and refused to complete it. She is currently refusing any IV medications or fluids, as well as refusal of a PICC line. The patient admitted that she had previously seen a chef kitchen manager and has a CPAP at home but has never used it. CPAP will be trialed tonight with setting recommendations by Dr. Christine. She denies fever, abdominal pain, nausea, vomiting, diarrhea, constipation , dysuria and any other acute complaints at this time. Objective - Vital Signs/Intake and Output Vital Signs (last 24 hours): Temp Pulse Resp BP Pulse Ox 98.4 F 89 20 133/69 95 02/25/17 00:00 02/25/17 01:48 02/25/17 00:00 02/25/17 00:00 02/25/17 00:00 Intake and Output: 02/25/17 02/25/17 06:59 18:59 Intake Total 250 Balance 250 - Medications Medications: Current Medications Albuterol/Ipratropium (Duoneb 3 Mg/0.5 Mg (3 Ml) Ud) 3 ml INH RQ6 [facility] Last Admin: 02/25/17 02:21 Dose: 3 ml Benzocaine/Menthol (Cepacol Sore Throat) 1 vikas MT Q1 PRN PRN Reason: Sore Throat Last Admin: 02/23/17 22:39 Dose: 1 vikas Famotidine (Pepcid) 20 mg PO BID [facility] Last Admin: 02/24/17 18:05 Dose: 20 mg Fluticasone Propionate (Flonase) 1 spr JOSH DAILY [facility] Last Admin: 02/24/17 11:15 Dose: 2 spray Guaifenesin/Codeine Phosphate (Guaifenesin/Codeine) 10 ml PO Q6H PRN PRN Reason: Cough and congestion Last Admin: 02/24/17 11:23 Dose: 10 ml Heparin Sodium (Porcine) (Heparin) 5,000 units SC Q12 [facility] Last Admin: 02/24/17 22:06 Dose: 5,000 units Piperacillin Sod/Tazobactam (Sod 3.375 gm/ Sodium Chloride) 100 mls @ 200 mls/ hr IVPB Q6H [facility] Last Admin: 02/25/17 06:05 Dose: Not Given Vancomycin/Sodium Chloride (Vancocin) 200 mls @ 166.7 mls/hr IVPB BID [facility] Stop: 02/28/17 18:01 Last Admin: 02/24/17 18:05 Dose: 166.7 mls/hr Ibuprofen (Motrin Tab) 400 mg PO Q6H PRN PRN Reason: Pain, moderate (4-7) Last Admin: 02/23/17 22:37 Dose: 400 mg Methylprednisolone (Solu-Medrol) 40 mg IVP Q8H [facility] Last Admin: 02/25/17 00:19 Dose: 40 mg - Labs Labs: 02/25/17 05:53 02/25/17 05:53 - Additional Findings Additional findings: - Constitutional Appears: Non-toxic, No Acute Distress - Head Exam Head Exam: NORMAL INSPECTION, NORMOCEPHALIC - Eye Exam Eye Exam: EOMI, Normal appearance - ENT Exam ENT Exam: Mucous Membranes Moist -Tender to palpation of Right neck (improved), now mildly tender at L neck. - Neck Exam Neck exam: Positive for: Full Rom, Normal Inspection - Respiratory Exam Respiratory Exam: Decreased Breath Sounds, Wheezes. absent: Rales, Rhonchi, Chest wall tenderness - Cardiovascular Exam Cardiovascular Exam: REGULAR RHYTHM, +S1, +S2 - GI/Abdominal Exam GI & Abdominal Exam: Normal Bowel Sounds, Soft. absent: Distended, Guarding, Hernia, Tenderness - Extremities Exam Extremities exam: Positive for: full ROM, normal inspection, tenderness. Negative for: pedal edema - Back Exam Back exam: NORMAL INSPECTION. absent: FULL ROM, rash noted - Neurological Exam Neurological exam: Alert, Oriented x3 - Psychiatric Exam Psychiatric exam: Agitated, Anxious - Skin Skin Exam: Dry, Normal Color, Warm Assessment and Plan - Assessment and Plan (Free Text) Assessment: Asthma exacerbation 02/24-02/25: Patient responding well to tx. Peak flow on admission 200. Patient received 3 Duoneb treatments in the ED, prednisone, tessalon pearls. CXR on admission: No evidence of new infiltrate or consolidation in the lungs. Mild hyperinflation of the lungs and prominent lung markings are again seen. Duoneb Q6H [facility] Solu-Metdrol 40 mg IVP Q8H Guaifenesin/Codeine Q6H PRN Status: Acute COPD (chronic obstructive pulmonary disease) with emphysema 02/24-02/25: Patient responding well to tx. See plan above Status: Acute URI (upper respiratory infection) 02/25: Vanco trough 6.8 -> patient refusing IV. Switch to Avelox 400 PO daily 02/23-02/24: Muffling of voice persists. Continue IV Abx. -ENT Consult, Dr. Delvalle, f/u recs -Laryngoscope exam - negative -f/u MRI neck to look for lesions -CT Neck soft tissue - There is asymmetry of the pyriform sinuses left-side, could represent collected secretion within the left pyriform sinus. Asymmetry of the vallecula containing possible residual and or retained secretion. The consider direct visualization. Mucoperiosteal inflammatory changes within the aforementioned paranasal sinuses as described. see full report -CT Chest- Patchy right lower lobe opacity -possible pneumonia. Question focal soft tissue measuring approximately 2.1 cm within the right lateral breast; recommend correlation with dedicated breast imaging to exclude possibility of pulmonary nodule/mass. see full report Partially imaged hepatomegaly. -Avelox 400 PO daily (started 02/25) -STOP Zosyn 3.375 IVPB Q6H (02/23) (stopped 02/25, pt refusing IVs) -STOP Vanco 1Gm IVPB BID (02/23) (stopped 02/25, pt refusing IVs) -Stop: Azithromycin 500 mg PO Daily (02/23) Status: Acute Leukocytosis 02/25: Vanco trough 6.8 -> patient refusing IV. Switch to Avelox 400 PO daily. WBC 21.2 uptrending (likely from steroids) 02/24: WBC 19, uptrending (likely due to steroids). Continue IV Abx. -Blood culture- negative x 1d f/u UC f/u UA -Avelox 400 PO daily (started 02/25) -STOP Zosyn 3.375 IVPB Q6H (02/23) (stopped 02/25, pt refusing IVs) -STOP Vanco 1Gm IVPB BID (02/23) (stopped 02/25, pt refusing IVs) -Stop: Azithromycin 500 mg PO Daily (02/23) Sleep Apnea -pt with history of sleep apnea, tries to wear CPAP at home, unsure of settings or how to use machine. -Pulmonolgy consult, Dr. Christine, f/u recs Hypothyroidism, suspected -possible enlarged thyroid vs fat pad -Thyroid ultrasound negative; f/u TSH/free T4 Rib pain Secondary to cough. Continue antitussive as above. Motrin 400 mg PO Q6 PRN pain Status: Acute Depression Patient does not know her home medication. Will monitor mood for changes. Status: Acute Anxiety She does not take anything for anxiety. Will monitor mood for changes. Status: Acute Prophylactic measure Pepcid 30 mg PO BID Heparin 5000 SC Q12H [facility]CD[facility] PICC line recommended -> patient refusing all IV access Status: Acute <Torito Hess H - Last Filed: 02/25/17 17:10> Objective - Vital Signs/Intake and Output Vital Signs (last 24 hours): Temp Pulse Resp BP Pulse Ox 97.6 F 90 20 132/72 96 02/25/17 08:02 02/25/17 16:45 02/25/17 08:02 02/25/17 14:23 02/25/17 08:02 Intake and Output: 02/25/17 02/25/17 06:59 18:59 Intake Total 250 Balance 250 - Medications Medications: Current Medications Albuterol/Ipratropium (Duoneb 3 Mg/0.5 Mg (3 Ml) Ud) 3 ml INH RQ6 [facility] Last Admin: 02/25/17 13:26 Dose: 3 ml Benzocaine/Menthol (Cepacol Sore Throat) 1 vikas MT Q1 PRN PRN Reason: Sore Throat Last Admin: 02/23/17 22:39 Dose: 1 vikas Famotidine (Pepcid) 20 mg PO BID [facility] Last Admin: 02/25/17 09:01 Dose: 20 mg Fluticasone Propionate (Flonase) 1 spr JOSH DAILY [facility] Last Admin: 02/25/17 13:35 Dose: Not Given Furosemide (Lasix) 20 mg PO DAILY [facility] Last Admin: 02/25/17 14:23 Dose: 20 mg Guaifenesin/Codeine Phosphate (Guaifenesin/Codeine) 10 ml PO Q6H PRN PRN Reason: Cough and congestion Last Admin: 02/24/17 11:23 Dose: 10 ml Heparin Sodium (Porcine) (Heparin) 5,000 units SC Q12 [facility] Last Admin: 02/25/17 09:01 Dose: Not Given Ibuprofen (Motrin Tab) 400 mg PO Q6H PRN PRN Reason: Pain, moderate (4-7) Last Admin: 02/23/17 22:37 Dose: 400 mg Moxifloxacin HCl (Avelox) 400 mg PO DAILY [facility] Last Admin: 02/25/17 14:23 Dose: 400 mg Prednisone (Prednisone Tab) 20 mg PO DAILY [facility] Last Admin: 02/25/17 14:23 Dose: 20 mg - Labs Labs: 02/25/17 05:53 02/25/17 05:53 Attending/Attestation - Attestation I have personally seen and examined this patient.: Yes I have fully participated in the care of the patient.: Yes I have reviewed all pertinent clinical information, including history, physical exam and plan: Yes Notes (Text): Medical Attending: Patient was seen and examined by me. Agree with the above note by the resident. The patient is currently reporting that her breathing does seem to be improved somewhat. She lost IV access this morning again - she does not want a PICC line. So will change house attendant to PO prednisone as well as PO abx. We talked about her weight - she has gained a tremendous amount of weight recently and I explained to her that while she does have a history of asthma/ COPD that I suspected that her breathing was made a lot worse with the weight. Will get a pulmonary evaluation as well as add on Advair BID. She will need CPAP as well thank you Torito Hess
--- NOTE | 2017-02-25 07:31 | PROCN ---
DATE: 02/24/2017 REASON FOR CONSULTATION: Possible throat lesion. HISTORY: This is a 51-year-old female who presents to the Emergency Room with COPD exacerbation. Sh e also some neck pain. It was [id number] in intensity. The neck pain has resolved. Therefore , a CAT scan was done, which revealed possible throat lesions. PROCEDURE: The patient was placed in a seated position. A flexible laryngoscope was inserted into t he left nasal cavity after the nose was decongested using Afrin. The flexible laryngoscope was passe d through the nasopharynx, oropharynx, hypopharynx, the pharyngeal cruz, base of tongue, vallecula, epiglottis, AE folds, false cords, true cords, arytenoids, piriform sinuses were brought into view. No masses or lesions were noted. The vocal cords were noted to be mobile bilaterally. The scope was removed. The patient tolerated the procedure well. Since the patient has a history of smoking, I am going to order an MRI of the neck to be done to see if there are any lesions. The CAT scan did not show any definitive lesions, only any possible ones. Since I do not see any on exam, I think an MRI would give a closer look at the soft tissue different iation and let us know if there are any lesions or not. Abdoulaye Delvalle MD cc: [id number] TT: 02/24/2017 19:01:38 Confirmation # [id number] Dictation # [id number] dn
[2017-02-25 08:27] LABS: MYELOCYTE 1 % (0-0); NEUTROPHIL 87 % (50-75); REACTIVE LYMPHOCYTES 1 % (0-0); TOTAL CELLS COUNTED 100
[2017-02-25 08:38] LABS: LARGE PLATELETS PRESENT
[2017-02-25] MEDS: Vancomycin 1 gm/NS 200 ml 200 ML IVPB SCH (09:50)
--- NOTE | 2017-02-25 13:27 | CP.PCM.CON ---
History of Present Illness - History of Present Illness History of Present Illness: Patient is a 51yo female that originally presented to [facility] with dyspnea and right chest wall tenderness and cough. Pulmonology was consulted for management of COPD and sleep Apnea. The patient was seen and examined at bedside today in no acute distress, no acute events reported overnight. The patient reports that she has trouble dyspnea and cough, as well as reporting difficulty sleeping. She reports that her dyspnea is relieved with breathing treatments and her cough bring ups clear to white mucus. The patient reports that the she does wake up several times throughout the night gasping for air and always wakes up tired. Sleep studies were performed in 2014, but the patient never followed up and was never given a CPAP. The patient only has a nebulizer which she uses at home. The pt currently denies chest pain, palpitations, palpitations, headache, nausea, vomiting, fever , chills at this time. PMHx: COPD/emphysema, asthma, obesity, GERD, depression and anxiety, chronic back pain, OA. Medications: Albuterol nebs, rescue inhaler, prednisone. Allergies: NKDA Surgery Hx: umbilical Hernia repair, hysterectomy. Social Hx: .1ppd smoker, denies alcohol or illicit drug use. Family Hx: mother with brain tumor, father with tobacco abuse and DM. Review of Systems - Constitutional Constitutional: Snoring, Sleep Apnea. absent: Chills, Fever - EENT Eyes: absent: Blurred Vision, Change in Vision Nose/Mouth/Throat: absent: Nasal Congestion, Nasal Discharge, Nasal Trauma, Dysphagia - Cardiovascular Cardiovascular: Dyspnea on Exertion. absent: Chest Pain, Chest Pain at Rest - Respiratory Respiratory: Dyspnea on Exertion, Wheezing, Snoring, Chest Congestion, Pain with Coughing - Integumentary Integumentary: absent: New Lesions, Pruritus, Rash, Unusual Bruising, Jaundice - Neurological Neurological: absent: Abnormal Gait, Abnormal Movements, Tingling, Tremor, Vertigo Past Patient History - Past Medical History & Family History Past Medical History?: Yes - Past Social History Smoking Status: Current Some Days Smoker Alcohol: None Drugs: Denies - CARDIAC Hx Cardiac Disorders: Yes Hx Hypertension: Yes - PULMONARY Hx Respiratory Disorders: Yes Hx Asthma: Yes Hx Chronic Obstructive Pulmonary Disease (COPD): Yes - NEUROLOGICAL Hx Neurological Disorder: No - HEENT Hx HEENT Problems: No Other/Comment: wears reading eyeglasses - RENAL Hx Chronic Kidney Disease: No - ENDOCRINE/METABOLIC Hx Endocrine Disorders: No - HEMATOLOGICAL/ONCOLOGICAL Hx Blood Disorders: No - INTEGUMENTARY Hx Dermatological Problems: No - MUSCULOSKELETAL/RHEUMATOLOGICAL Hx Musculoskeletal Disorders: Yes Hx Back Pain: Yes Hx Falls: No - GASTROINTESTINAL Hx Gastrointestinal Disorders: Yes Hx Gastroesophageal Reflux: Yes Other/Comment: HISTORY OF HERNIA - GENITOURINARY/GYNECOLOGICAL Hx Genitourinary Disorders: No - PSYCHIATRIC Hx Psychophysiologic Disorder: Yes Hx Anxiety: Yes Hx Depression: Yes Hx Substance Use: No - SURGICAL HISTORY Hx Surgeries: Yes Hx Hysterectomy: Yes Other/Comment: ABDOMINAL HERNIA REPAIR ALMOST 2 YEARS AGO PER PT - ANESTHESIA Hx Anesthesia: Yes Hx Anesthesia Reactions: No Hx Malignant Hyperthermia: No Has any member of the family had a problem w/ anesthesia?: No Meds Home Medications: Home Medication List Medication Instructions Recorded Confirmed Type Albuterol 0.083% [Albuterol 3 ml IH Q4 #150 neb 02/22/17 Rx Sulfate 3 Ml] Azithromycin [Zithromax] 2 tab PO DAILY #6 tab 02/22/17 Rx Prednisone [Deltasone] 3 tab PO DAILY #12 tablet 02/22/17 Rx Allergies/Adverse Reactions: Allergies Allergy/AdvReac Type Severity Reaction Status Date / Time No Known Allergies Allergy Verified 02/22/17 14:26 - Medications Medications: Current Medications Albuterol/Ipratropium (Duoneb 3 Mg/0.5 Mg (3 Ml) Ud) 3 ml INH RQ6 [facility] Last Admin: 02/25/17 08:09 Dose: 3 ml Benzocaine/Menthol (Cepacol Sore Throat) 1 vikas MT Q1 PRN PRN Reason: Sore Throat Last Admin: 02/23/17 22:39 Dose: 1 vikas Famotidine (Pepcid) 20 mg PO BID [facility] Last Admin: 02/25/17 09:01 Dose: 20 mg Fluticasone Propionate (Flonase) 1 spr JOSH DAILY [facility] Last Admin: 02/24/17 11:15 Dose: 2 spray Furosemide (Lasix) 20 mg PO DAILY [facility] Guaifenesin/Codeine Phosphate (Guaifenesin/Codeine) 10 ml PO Q6H PRN PRN Reason: Cough and congestion Last Admin: 02/24/17 11:23 Dose: 10 ml Heparin Sodium (Porcine) (Heparin) 5,000 units SC Q12 [facility] Last Admin: 02/25/17 09:01 Dose: Not Given Ibuprofen (Motrin Tab) 400 mg PO Q6H PRN PRN Reason: Pain, moderate (4-7) Last Admin: 02/23/17 22:37 Dose: 400 mg Moxifloxacin HCl (Avelox) 400 mg PO DAILY [facility] Prednisone (Prednisone Tab) 20 mg PO DAILY [facility] Physical Exam - Constitutional Appears: Well, Non-toxic, No Acute Distress - Head Exam Head Exam: ATRAUMATIC, NORMAL INSPECTION - Eye Exam Eye Exam: Normal appearance - Neck Exam Neck exam: Positive for: Normal Inspection - Respiratory Exam Respiratory Exam: Chest Wall Tenderness, Rhonchi, Wheezes. absent: Rales, Respiratory Distress - Cardiovascular Exam Cardiovascular Exam: +S1, +S2 - Neurological Exam Neurological exam: Alert, Oriented x3 - Skin Skin Exam: Dry, Normal Color, Warm Results - Vital Signs Recent Vital Signs: Last Vital Signs Temp 97.6 F 02/25/17 08:02 Pulse 90 02/25/17 08:02 Resp 20 02/25/17 08:02 BP 132/72 02/25/17 08:02 Pulse Ox 96 02/25/17 08:02 - Labs Result Diagrams: 02/25/17 05:53 02/25/17 05:53 Labs: Laboratory Results - last 24 hr 02/24/17 02/25/17 12:56 05:53 WBC 21.2 H RBC 4.71 Hgb 12.6 Hct 38.7 MCV 82.1 MCH 26.8 L MCHC 32.7 L RDW 14.9 H Plt Count 375 MPV 8.9 Neut % (Auto) 87.4 H Lymph % (Auto) 6.6 L [place] % (Auto) 5.9 Eos % (Auto) 0.0 Baso % (Auto) 0.1 Neut # 18.5 H Lymph # 1.4 [place] # 1.3 H Eos # 0.0 Baso # 0.0 Neutrophils % (Manual) 87 H Band Neutrophils % 3 H Lymphocytes % (Manual) 3 L Reactive Lymphs % 1 H Monocytes % (Manual) 5 Myelocytes % 1 H Platelet Estimate Normal Large Platelets Present Basophilic Stippling Slight Sodium 139 Potassium 4.2 Chloride 98 Carbon Dioxide 28 Anion Gap 17 BUN 16 Creatinine 0.8 Est GFR ( Amer) > 60 Est GFR (Non-Af Amer) > 60 Random Glucose 185 H Calcium 8.3 L Phosphorus 3.2 Magnesium 2.0 Total Bilirubin 0.5 AST 23 ALT 32 Alkaline Phosphatase 95 Total Protein 6.8 Albumin 3.6 Globulin 3.2 Albumin/Globulin Ratio 1.1 Urine Color Yellow Urine Clarity Clear Urine pH 6.0 Ur Specific [place] 1.023 Urine Protein Negative Urine Glucose (UA) 1+ Urine Ketones Negative Urine Blood Negative Urine Nitrate Negative Urine Bilirubin Negative Urine Urobilinogen Normal Ur Leukocyte Esterase Neg Urine WBC (Auto) 6 H Urine RBC (Auto) 1 Ur Squamous Epith Cells 2 Vancomycin Trough 6.8 Assessment & Plan - Assessment and Plan (Free Text) Plan: 1) Obstructive sleep Apnea Pt had sleep study performed in 2014 here at [facility], results showed mild sleep apnea Recommend starting CPAP 10 at night for sleep 2) COPD Continue steroid treatments as needed pt is improving 3) Pneumonia Continue Abx continue recommendations by medicine team - Date & Time Date: 02/25/17 Time: 13:30
[2017-02-25] MEDS: Fluticasone Nasal 50 mcg/Spray NAS SCH (13:35)
--- NOTE | 2017-02-25 15:46 | US ---
HISTORY: enlarged thyroid gland TECHNIQUE: Sonographic evaluation of the thyroid gland. COMPARISON: Not available FINDINGS: RIGHT LOBE: Measures 5.2 x 1.9 x 1.8 cm. Normal echotexture and flow. Nodules: None LEFT LOBE: Measures 3.8 x 1.8 x 1.4 cm. Normal echotexture and flow. Nodules: None ISTHMUS: Measures 0.5 cm. Normal echotexture and flow. Nodules: None OTHER FINDINGS: None . IMPRESSION: Unremarkable thyroid sonogram.
[2017-02-25] MEDS ORDERED: Fluticasone-Salmeterol 250-50mcg Diskus INH SCH (20:00)
[2017-02-26] MEDS: Albuterol-Ipratrop 3 mg / 0.5 (3 ml) UD INH SCH ×4 (01:09→20:44)
[2017-02-26 06:52] LABS: BASO % 0.1 % (0.0-2.0); EOS % 0.1 % (0.0-4.0); HEMATOCRIT 39.3 % (34.0-47.0); LYMPH # 2.8 K/uL (1.0-4.3); LYMPH % 13.9 % (20.0-40.0); MEAN CELL VOLUME 82.6 fL (81.0-99.0); MEAN CORPUSCULAR HEMOGLOBIN 26.9 pg (27.0-31.0); MEAN CORPUSCULAR HGB CONC 32.6 g/dL (33.0-37.0); MEAN PLATELET VOLUME 8.6 fL (7.2-11.7); MONO # 2.1 K/uL (0.0-0.8); MONO % 10.4 % (0.0-10.0); RED CELL DISTRIBUTION WIDTH 14.5 % (11.5-14.5); WHITE BLOOD COUNT 20.2 K/uL (4.8-10.8)
[2017-02-26 06:53] LABS: CHLORIDE 101 mmol/L (98-107)
[2017-02-26 06:54] LABS: POTASSIUM 4.5 mmol/L (3.6-5.2); SODIUM 138 mmol/L (132-148)
[2017-02-26 06:56] LABS: GFR AFRICAN-AMERICAN > 60
[2017-02-26 06:57] LABS: ALB/GLOB RATIO 1.2 (1.0-2.1); ALKALINE PHOSPHATASE 73 U/L (38-126); ALT/SGPT 29 U/L (9-52); AST/SGOT 18 U/L (14-36); BILIRUBIN,TOTAL 0.5 mg/dL (0.2-1.3); BLOOD UREA NITROGEN 18 mg/dL (7-17); CALCIUM 8.6 mg/dl (8.6-10.4); CARBON DIOXIDE 28 mmol/L (22-30); GLUCOSE,RANDOM 94 mg/dL (65-105); PHOSPHOROUS 4.1 mg/dL (2.5-4.5); TOTAL PROTEIN 6.8 g/dL (6.3-8.3)
[2017-02-26 06:58] LABS: MAGNESIUM 2.3 mg/dL (1.6-2.3)
[2017-02-26 07:22] LABS: THYROID STIMULATING HORMONE 0.59 mIU/L (0.46-4.68)
--- NOTE | 2017-02-26 07:58 | CP.PCM.PN ---
<Torito Blue - Last Filed: 02/26/17 16:27> Subjective - Date & Time of Evaluation Date of Evaluation: 02/26/17 Time of Evaluation: 07:25 - Subjective Subjective: PGY-1 medicine note - Dr. Whitmore service Patient seen and examined at bedside, chart reviewed and case discussed. No overnight events per nursing. Overall the patient feels better. She continues to receive breathing treatments which are helping, although she still breathes with some difficulty. CPAP was not brought to her room last night, so she slept without it. She describes some pain in her ribs that is exacerbated by coughing and breathing deeply. She denies fever, abdominal pain, nausea, vomiting, diarrhea, constipation, dysuria and any other acute complaints at this time. Objective - Vital Signs/Intake and Output Vital Signs (last 24 hours): Temp Pulse Resp BP Pulse Ox 98.2 F 90 20 114/71 96 02/26/17 00:00 02/26/17 02:44 02/26/17 00:00 02/26/17 00:00 02/26/17 00:00 Intake and Output: 02/26/17 02/26/17 06:59 18:59 Intake Total 240 Balance 240 - Medications Medications: Current Medications Albuterol/Ipratropium (Duoneb 3 Mg/0.5 Mg (3 Ml) Ud) 3 ml INH RQ6 [facility] Last Admin: 02/26/17 07:39 Dose: 3 ml Benzocaine/Menthol (Cepacol Sore Throat) 1 vikas MT Q1 PRN PRN Reason: Sore Throat Last Admin: 02/23/17 22:39 Dose: 1 vikas Famotidine (Pepcid) 20 mg PO BID [facility] Last Admin: 02/25/17 18:00 Dose: 20 mg Fluticasone Propionate (Flonase) 1 spr JOSH DAILY [facility] Last Admin: 02/25/17 13:35 Dose: Not Given Furosemide (Lasix) 20 mg PO DAILY [facility] Last Admin: 02/25/17 14:23 Dose: 20 mg Guaifenesin/Codeine Phosphate (Guaifenesin/Codeine) 10 ml PO Q6H PRN PRN Reason: Cough and congestion Last Admin: 02/24/17 11:23 Dose: 10 ml Heparin Sodium (Porcine) (Heparin) 5,000 units SC Q12 [facility] Last Admin: 02/25/17 09:01 Dose: Not Given Ibuprofen (Motrin Tab) 400 mg PO Q6H PRN PRN Reason: Pain, moderate (4-7) Last Admin: 02/23/17 22:37 Dose: 400 mg Moxifloxacin HCl (Avelox) 400 mg PO DAILY [facility] Last Admin: 02/25/17 14:23 Dose: 400 mg Prednisone (Prednisone Tab) 20 mg PO DAILY [facility] Last Admin: 02/25/17 14:23 Dose: 20 mg - Labs Labs: 02/26/17 06:25 02/26/17 06:25 - Additional Findings Additional findings: - Constitutional Appears: Non-toxic, No Acute Distress - Head Exam Head Exam: NORMAL INSPECTION, NORMOCEPHALIC - Eye Exam Eye Exam: EOMI, Normal appearance - ENT Exam ENT Exam: Mucous Membranes Moist -Tender to palpation of b/l neck (improved) - Neck Exam Neck exam: Positive for: Full Rom, Normal Inspection - Respiratory Exam Respiratory Exam: Decreased Breath Sounds, Wheezes. absent: Rales, Rhonchi, Chest wall tenderness - Cardiovascular Exam Cardiovascular Exam: REGULAR RHYTHM, +S1, +S2 - GI/Abdominal Exam GI & Abdominal Exam: Normal Bowel Sounds, Soft. absent: Distended, Guarding, Hernia, Tenderness - Extremities Exam Extremities exam: Positive for: full ROM, normal inspection, tenderness. Negative for: pedal edema - Back Exam Back exam: NORMAL INSPECTION. absent: FULL ROM, rash noted - Neurological Exam Neurological exam: Alert, Oriented x3 - Psychiatric Exam Psychiatric exam: Normal Affect, Normal Mood. absent: Agitated, Anxious - Skin Skin Exam: Dry, Normal Color, Warm Assessment and Plan - Assessment and Plan (Free Text) Assessment: Asthma exacerbation 02/24-02/26: Patient responding well to tx. Peak flow on admission 200. Patient received 3 Duoneb treatments in the ED, prednisone, tessalon pearls. CXR on admission: No evidence of new infiltrate or consolidation in the lungs. Mild hyperinflation of the lungs and prominent lung markings are again seen. Duoneb Q6H [facility] Solu-Metdrol 40 mg IVP Q8H Guaifenesin/Codeine Q6H PRN Status: Acute COPD (chronic obstructive pulmonary disease) with emphysema 02/24-02/25: Patient responding well to tx. See plan above Status: Acute URI (upper respiratory infection) 02/26: Afebrile. WBC elevated, likely due to steroids. 02/26: CT soft tissue neck with contrast: (1). Severe ethmoid sinusitis and fluid levels in the maxillary sinuses and right sphenoid chamber which may represent acute sinusitis in the appropriate clinical setting. (2). Moderate adenoid hypertrophy which could be seen in the setting of recent infection. (3) . No evidence of peritonsillar abscess, bulky mass or pathologic lymphadenopathy. 02/25: Vanco trough 6.8 -> patient refusing IV. Switch to Avelox 400 PO daily 02/23-02/24: Muffling of voice persists. Continue IV Abx. -ENT Consult, Dr. Delvalle, f/u recs -Laryngoscope exam - negative -f/u MRI neck to look for lesions -> pt refused -CT Neck soft tissue - There is asymmetry of the pyriform sinuses left-side, could represent collected secretion within the left pyriform sinus. Asymmetry of the vallecula containing possible residual and or retained secretion. The consider direct visualization. Mucoperiosteal inflammatory changes within the aforementioned paranasal sinuses as described. see full report -CT Chest- Patchy right lower lobe opacity -possible pneumonia. Question focal soft tissue measuring approximately 2.1 cm within the right lateral breast; recommend correlation with dedicated breast imaging to exclude possibility of pulmonary nodule/mass. see full report Partially imaged hepatomegaly. -Avelox 400 PO daily (started 02/25) -STOP Zosyn 3.375 IVPB Q6H (02/23) (stopped 02/25, pt refusing IVs) -STOP Vanco 1Gm IVPB BID (02/23) (stopped 02/25, pt refusing IVs) -Stop: Azithromycin 500 mg PO Daily (02/23) Status: Acute Leukocytosis 02/26: UC - negative; UA negative 02/25: Vanco trough 6.8 -> patient refusing IV. Switch to Avelox 400 PO daily. WBC 21.2 uptrending (likely from steroids) 02/24: WBC 19, uptrending (likely due to steroids). Continue IV Abx. -Blood culture- negative -Avelox 400 PO daily (started 02/25) -STOP Zosyn 3.375 IVPB Q6H (02/23) (stopped 02/25, pt refusing IVs) -STOP Vanco 1Gm IVPB BID (02/23) (stopped 02/25, pt refusing IVs) -Stop: Azithromycin 500 mg PO Daily (02/23) Sleep Apnea 02/26: CPAP of 10, Rate 12 - to be worn at night. -pt with history of sleep apnea, tries to wear CPAP at home, unsure of settings or how to use machine. -Pulmonolgy consult, Dr. Christine, f/u recs Rib pain Secondary to cough. Continue antitussive as above. Motrin 400 mg PO Q6 PRN pain Status: Acute Depression Patient does not know her home medication. Will monitor mood for changes. Status: Acute Anxiety She does not take anything for anxiety. Will monitor mood for changes. Status: Acute Hypothyroidism - ruled out -possible enlarged thyroid vs fat pad -Thyroid ultrasound negative; - TSH/free T4 - negative Prophylactic measure Pepcid 30 mg PO BID Heparin 5000 SC Q12H SCDs PICC line recommended -> patient refusing all IV access Status: Acute <Torito Hess H - Last Filed: 02/26/17 19:12> Objective - Vital Signs/Intake and Output Vital Signs (last 24 hours): Temp Pulse Resp BP Pulse Ox 97.7 F 91 H 22 120/72 96 02/26/17 16:03 02/26/17 16:03 02/26/17 16:03 02/26/17 16:03 02/26/17 16:03 Intake and Output: 02/26/17 02/27/17 18:59 06:59 Intake Total 940 Balance 940 - Medications Medications: Current Medications Albuterol/Ipratropium (Duoneb 3 Mg/0.5 Mg (3 Ml) Ud) 3 ml INH RQ6 [facility] Last Admin: 02/26/17 13:25 Dose: 3 ml Benzocaine/Menthol (Cepacol Sore Throat) 1 vikas MT Q1 PRN PRN Reason: Sore Throat Last Admin: 02/23/17 22:39 Dose: 1 vikas Famotidine (Pepcid) 20 mg PO BID [facility] Last Admin: 02/26/17 17:38 Dose: 20 mg Fluticasone Propionate (Flonase) 1 spr JOSH DAILY [facility] Last Admin: 02/26/17 10:21 Dose: 2 spray Furosemide (Lasix) 20 mg PO DAILY [facility] Last Admin: 02/26/17 10:16 Dose: 20 mg Guaifenesin/Codeine Phosphate (Guaifenesin/Codeine) 10 ml PO Q6H PRN PRN Reason: Cough and congestion Last Admin: 02/24/17 11:23 Dose: 10 ml Heparin Sodium (Porcine) (Heparin) 5,000 units SC Q12 [facility] Last Admin: 02/26/17 10:22 Dose: Not Given Ibuprofen (Motrin Tab) 400 mg PO Q6H PRN PRN Reason: Pain, moderate (4-7) Last Admin: 02/26/17 14:08 Dose: 400 mg Moxifloxacin HCl (Avelox) 400 mg PO DAILY [facility] Last Admin: 02/26/17 10:17 Dose: 400 mg Prednisone (Prednisone Tab) 10 mg PO DAILY [facility] - Labs Labs: 02/26/17 06:25 02/26/17 06:25 Attending/Attestation - Attestation I have personally seen and examined this patient.: Yes I have fully participated in the care of the patient.: Yes I have reviewed all pertinent clinical information, including history, physical exam and plan: Yes Notes (Text): 02/26/17 19:09 Medical Attending: Patient was seen and examined by me. Agree with the above note by the resident. The patient's RN was very concerned about the excessive amount of food the patient was eating - she ate three trays she was not supposed to be allowed. She does report breathing better - as mentioned before we changed her regimen over to PO prednisone as well as PO Avelox. Also on Advair BID I made clear to family members in the room as well as to the patient that we could only do so much with giving medication because her weight gain was likley contributing to a lot of the difficulty breathing. I also explained that probably the patient would be discharged tommorow. thank you Torito Hess
--- NOTE | 2017-02-26 08:49 | CP.PCM.PN ---
Subjective - Date & Time of Evaluation Date of Evaluation: 02/26/17 Time of Evaluation: 08:47 - Subjective Subjective: patient refused MRI. I spoke to patient and told her that she should try to get the MRI to see if the CT findings were something that needs to be biopsied or not. I asked her to try to get an MRI and she agreed Objective - Vital Signs/Intake and Output Vital Signs (last 24 hours): Temp Pulse Resp BP Pulse Ox 97.8 F 90 20 154/78 H 95 02/26/17 08:33 02/26/17 08:33 02/26/17 08:33 02/26/17 08:33 02/26/17 08:33 Intake and Output: 02/26/17 02/26/17 06:59 18:59 Intake Total 240 Balance 240 - Medications Medications: Current Medications Albuterol/Ipratropium (Duoneb 3 Mg/0.5 Mg (3 Ml) Ud) 3 ml INH RQ6 [facility] Last Admin: 02/26/17 07:39 Dose: 3 ml Benzocaine/Menthol (Cepacol Sore Throat) 1 vikas MT Q1 PRN PRN Reason: Sore Throat Last Admin: 02/23/17 22:39 Dose: 1 vikas Famotidine (Pepcid) 20 mg PO BID [facility] Last Admin: 02/25/17 18:00 Dose: 20 mg Fluticasone Propionate (Flonase) 1 spr JOSH DAILY [facility] Last Admin: 02/25/17 13:35 Dose: Not Given Furosemide (Lasix) 20 mg PO DAILY [facility] Last Admin: 02/25/17 14:23 Dose: 20 mg Guaifenesin/Codeine Phosphate (Guaifenesin/Codeine) 10 ml PO Q6H PRN PRN Reason: Cough and congestion Last Admin: 02/24/17 11:23 Dose: 10 ml Heparin Sodium (Porcine) (Heparin) 5,000 units SC Q12 [facility] Last Admin: 02/25/17 09:01 Dose: Not Given Ibuprofen (Motrin Tab) 400 mg PO Q6H PRN PRN Reason: Pain, moderate (4-7) Last Admin: 02/23/17 22:37 Dose: 400 mg Moxifloxacin HCl (Avelox) 400 mg PO DAILY [facility] Last Admin: 02/25/17 14:23 Dose: 400 mg Prednisone (Prednisone Tab) 20 mg PO DAILY [facility] Last Admin: 02/25/17 14:23 Dose: 20 mg - Labs Labs: 02/26/17 06:25 02/26/17 06:25
--- NOTE | 2017-02-26 10:13 | CP.PCM.PN ---
Subjective - Date & Time of Evaluation Date of Evaluation: 02/26/17 Time of Evaluation: 08:15 - Subjective Subjective: Patient was seen and examined at bedside, no acute distress, no acute events reported overnight. Pt was sitting and eating breakfast with nasal cannula, and reports a mild improvement in breathing but still reports that she wakes up several times at night gasping for air. CPAP has not been started as per patient reports, will be started tonight. Patient denies chest pain, palpitations, nausea, vomiting, fever, chills, headache at this time. Objective - Vital Signs/Intake and Output Vital Signs (last 24 hours): Temp Pulse Resp BP Pulse Ox 97.8 F 90 20 154/78 H 95 02/26/17 08:33 02/26/17 08:33 02/26/17 08:33 02/26/17 08:33 02/26/17 08:33 Intake and Output: 02/26/17 02/26/17 06:59 18:59 Intake Total 240 Balance 240 - Medications Medications: Current Medications Albuterol/Ipratropium (Duoneb 3 Mg/0.5 Mg (3 Ml) Ud) 3 ml INH RQ6 [facility] Last Admin: 02/26/17 07:39 Dose: 3 ml Benzocaine/Menthol (Cepacol Sore Throat) 1 vikas MT Q1 PRN PRN Reason: Sore Throat Last Admin: 02/23/17 22:39 Dose: 1 vikas Famotidine (Pepcid) 20 mg PO BID [facility] Last Admin: 02/25/17 18:00 Dose: 20 mg Fluticasone Propionate (Flonase) 1 spr JOSH DAILY [facility] Last Admin: 02/25/17 13:35 Dose: Not Given Furosemide (Lasix) 20 mg PO DAILY [facility] Last Admin: 02/25/17 14:23 Dose: 20 mg Guaifenesin/Codeine Phosphate (Guaifenesin/Codeine) 10 ml PO Q6H PRN PRN Reason: Cough and congestion Last Admin: 02/24/17 11:23 Dose: 10 ml Heparin Sodium (Porcine) (Heparin) 5,000 units SC Q12 [facility] Last Admin: 02/25/17 09:01 Dose: Not Given Ibuprofen (Motrin Tab) 400 mg PO Q6H PRN PRN Reason: Pain, moderate (4-7) Last Admin: 02/23/17 22:37 Dose: 400 mg Moxifloxacin HCl (Avelox) 400 mg PO DAILY [facility] Last Admin: 02/25/17 14:23 Dose: 400 mg Prednisone (Prednisone Tab) 20 mg PO DAILY [facility] Last Admin: 02/25/17 14:23 Dose: 20 mg - Labs Labs: 02/26/17 06:25 02/26/17 06:25 - Constitutional Appears: Well, Non-toxic, No Acute Distress - Head Exam Head Exam: ATRAUMATIC, NORMAL INSPECTION - Eye Exam Eye Exam: Normal appearance - Respiratory Exam Respiratory Exam: Decreased Breath Sounds, Wheezes - Cardiovascular Exam Cardiovascular Exam: +S1, +S2 - Neurological Exam Neurological Exam: Alert, Awake, Oriented x3 - Skin Skin Exam: Dry, Normal Color, Warm Assessment and Plan - Assessment and Plan (Free Text) Plan: 1) Obstructive sleep Apnea F/u on CPAP trial tonight Pt reports mild improvement in breathing 2) COPD Continue steroid treatments pt is improving 3) Pneumonia Continue Abx continue recommendations by medicine team
[2017-02-26] MEDS: Fluticasone Nasal 50 mcg/Spray NAS SCH (10:21)
[2017-02-26] MEDS ORDERED: Iodixanol 320 mg/ml 150 ml Bottle IV ONE ×2 (14:20→14:28)
--- NOTE | 2017-02-26 16:24 | CT ---
PROCEDURE: CT NECK WITH CONTRAST HISTORY: Possible throat lesion COMPARISON: None TECHNIQUE: CT of the neck with intravenous contrast. Coronal and sagittal reformats generated. Intravenous contrast dose: 100 mL Visipaque Radiation dose: DLP 486.53 mGy-cm This CT exam was performed using one or more of the following dose reduction techniques: Automated exposure control, adjustment of the mA and/or kV according to patient size, and/or use of iterative reconstruction technique. FINDINGS: NASOPHARYNX: There is moderate adenoid hypertrophy. SUPRAHYOID NECK: The oral cavity cannot be evaluated due to extensive streak artifacts from dental amalgam. There is no mass or abnormal enhancement in the oropharynx, oral cavity, parapharyngeal space and retropharyngeal space. INFRAHYOID NECK: There is no mass or abnormal enhancement in the larynx, hypopharynx, and supraglottic space. Vocal cords intact. MASS: None. GLANDS: Parotid and submandibular glands unremarkable. Normal size thyroid gland, without nodule. LYMPH NODES: Normal. No lymphadenopathy. CERVICAL SPINE: No fracture or focal lesion. Mild multilevel degenerative disc disease. VASCULAR STRUCTURES: Unremarkable. OTHER FINDINGS: There is severe mucosal thickening in the ethmoid air cells. There is moderate polypoid mucosal thickening in the maxillary sinuses small fluid levels in both maxillary sinuses. There is also fluid in the right sphenoid chamber. IMPRESSION: 1. Severe ethmoid sinusitis and fluid levels in the maxillary sinuses and right sphenoid chamber which may represent acute sinusitis in the appropriate clinical setting. 2. Moderate adenoid hypertrophy which could be seen in the setting of recent infection. 3. No evidence of peritonsillar abscess, bulky mass or pathologic lymphadenopathy.
[2017-02-27] MEDS: Albuterol-Ipratrop 3 mg / 0.5 (3 ml) UD INH SCH ×3 (01:18→14:03)
--- NOTE | 2017-02-27 09:42 | CP.PCM.PN ---
Subjective - Date & Time of Evaluation Date of Evaluation: 02/27/17 Time of Evaluation: 09:38 - Subjective Subjective: Patient seen and examined today at bedside, no acute distress, no acute events overnight. Patient reports continued pain and chest wall tenderness on the left , but reports that her breathing is improving with treatment. Pt reports some mild extremity swelling due to steroid treatment for COPD. Pt slept with CPAP and reported that she had slept well until the pain in her ribs woke her up again. Patient currently denies chest pain, palpitations, headache, nausea, vomiting, fever, chills at this time. Objective - Vital Signs/Intake and Output Vital Signs (last 24 hours): Temp Pulse Resp BP Pulse Ox 98.4 F 84 20 147/99 H 96 02/27/17 00:00 02/27/17 06:25 02/27/17 00:00 02/27/17 00:00 02/27/17 00:00 Intake and Output: 02/27/17 02/27/17 06:59 18:59 Intake Total 300 240 Balance 300 240 - Medications Medications: Current Medications Albuterol/Ipratropium (Duoneb 3 Mg/0.5 Mg (3 Ml) Ud) 3 ml INH RQ6 [facility] Last Admin: 02/27/17 08:02 Dose: 3 ml Benzocaine/Menthol (Cepacol Sore Throat) 1 vikas MT Q1 PRN PRN Reason: Sore Throat Last Admin: 02/23/17 22:39 Dose: 1 vikas Famotidine (Pepcid) 20 mg PO BID [facility] Last Admin: 02/26/17 17:38 Dose: 20 mg Fluticasone Propionate (Flonase) 1 spr JOSH DAILY [facility] Last Admin: 02/26/17 10:21 Dose: 2 spray Furosemide (Lasix) 20 mg PO DAILY [facility] Last Admin: 02/26/17 10:16 Dose: 20 mg Guaifenesin/Codeine Phosphate (Guaifenesin/Codeine) 10 ml PO Q6H PRN PRN Reason: Cough and congestion Last Admin: 02/24/17 11:23 Dose: 10 ml Heparin Sodium (Porcine) (Heparin) 5,000 units SC Q12 [facility] Last Admin: 02/26/17 21:31 Dose: Not Given Ibuprofen (Motrin Tab) 400 mg PO Q6H PRN PRN Reason: Pain, moderate (4-7) Last Admin: 02/27/17 09:04 Dose: 400 mg Moxifloxacin HCl (Avelox) 400 mg PO DAILY [facility] Last Admin: 02/26/17 10:17 Dose: 400 mg Prednisone (Prednisone Tab) 10 mg PO DAILY [facility] - Labs Labs: 02/26/17 06:25 02/26/17 06:25 - Constitutional Appears: Well, Non-toxic, No Acute Distress - Head Exam Head Exam: ATRAUMATIC, NORMAL INSPECTION - Eye Exam Eye Exam: Normal appearance - Respiratory Exam Respiratory Exam: Chest Wall Tenderness, Wheezes - Cardiovascular Exam Cardiovascular Exam: +S1, +S2 - Extremities Exam Additional comments: Mild bilateral UE swelling - Neurological Exam Neurological Exam: Alert, Awake, Oriented x3 - Skin Skin Exam: Dry, Normal Color, Warm Assessment and Plan - Assessment and Plan (Free Text) Plan: 1) Obstructive sleep Apnea Continue CPAP use PEEP 10, FiO2 30 Pt improving 2) COPD Taper Steroids Repeat CXR 3) Pneumonia Continue Abx continue recommendations by medicine team
[2017-02-27] MEDS: Fluticasone Nasal 50 mcg/Spray NAS SCH (10:36)
--- NOTE | 2017-02-27 11:38 | CP.PCM.PN ---
Subjective - Date & Time of Evaluation Date of Evaluation: 02/27/17 Time of Evaluation: 11:37 - Subjective Subjective: ct with contrast does not reveal any throat lesions, FL did not reveal any throat lesions. Therefore I do not believe that a DL with bx should be done at this point. OK to d/c patient home from ENT point Objective - Vital Signs/Intake and Output Vital Signs (last 24 hours): Temp Pulse Resp BP Pulse Ox 97.8 F 76 18 113/76 98 02/27/17 08:00 02/27/17 08:00 02/27/17 08:00 02/27/17 10:35 02/27/17 08:00 Intake and Output: 02/27/17 02/27/17 06:59 18:59 Intake Total 300 240 Balance 300 240 - Medications Medications: Current Medications Albuterol/Ipratropium (Duoneb 3 Mg/0.5 Mg (3 Ml) Ud) 3 ml INH RQ6 [facility] Last Admin: 02/27/17 08:02 Dose: 3 ml Benzocaine/Menthol (Cepacol Sore Throat) 1 vikas MT Q1 PRN PRN Reason: Sore Throat Last Admin: 02/23/17 22:39 Dose: 1 vikas Famotidine (Pepcid) 20 mg PO BID [facility] Last Admin: 02/27/17 10:35 Dose: 20 mg Fluticasone Propionate (Flonase) 1 spr JOSH DAILY [facility] Last Admin: 02/27/17 10:36 Dose: 2 spray Furosemide (Lasix) 20 mg PO DAILY [facility] Last Admin: 02/27/17 10:35 Dose: 20 mg Guaifenesin/Codeine Phosphate (Guaifenesin/Codeine) 10 ml PO Q6H PRN PRN Reason: Cough and congestion Last Admin: 02/24/17 11:23 Dose: 10 ml Heparin Sodium (Porcine) (Heparin) 5,000 units SC Q12 [facility] Last Admin: 02/27/17 10:36 Dose: Not Given Ibuprofen (Motrin Tab) 400 mg PO Q6H PRN PRN Reason: Pain, moderate (4-7) Last Admin: 02/27/17 09:04 Dose: 400 mg Moxifloxacin HCl (Avelox) 400 mg PO DAILY [facility] Last Admin: 02/27/17 10:36 Dose: 400 mg Prednisone (Prednisone Tab) 10 mg PO DAILY [facility] Last Admin: 02/27/17 10:35 Dose: 10 mg - Labs Labs: 02/26/17 06:25 02/26/17 06:25
[2017-02-27 17:18] VITALS: BP 120/60; PULSE 88; RESP 22; TEMP 98; O2SAT 95
--- NOTE | 2017-02-27 21:03 | CP.PCM.DIS ---
<Torito Blue - Last Filed: 02/27/17 23:17> Provider - Provider Date of Admission: 02/23/17 20:09 Attending physician: Torito Hess DO Consults: Pulm: Dr. Christine ENT: Dr. Delvalle Time Spent in preparation of Discharge (in minutes): 40 Hospital Course - Lab Results Lab Results: Micro Results 02/24/17 12:55 Urine,Clean Catch Urine Culture - Final No Growth (<1,000 CFU/ML) Most Recent Lab Values WBC 20.2 K/uL (4.8-10.8) H 02/26/17 06:25 RBC 4.75 Mil/uL (3.80-5.20) 02/26/17 06:25 Hgb 12.8 g/dL (11.0-16.0) 02/26/17 06:25 Hct 39.3 % (34.0-47.0) 02/26/17 06:25 MCV 82.6 fL (81.0-99.0) 02/26/17 06:25 MCH 26.9 pg (27.0-31.0) L 02/26/17 06:25 MCHC 32.6 g/dL (33.0-37.0) L 02/26/17 06:25 RDW 14.5 % (11.5-14.5) 02/26/17 06:25 Plt Count 365 K/uL (130-400) 02/26/17 06:25 MPV 8.6 fL (7.2-11.7) 02/26/17 06:25 Neut % (Auto) 75.5 % (50.0-75.0) H 02/26/17 06:25 Lymph % (Auto) 13.9 % (20.0-40.0) L 02/26/17 06:25 Harris % (Auto) 10.4 % (0.0-10.0) H 02/26/17 06:25 Eos % (Auto) 0.1 % (0.0-4.0) 02/26/17 06:25 Baso % (Auto) 0.1 % (0.0-2.0) 02/26/17 06:25 Neut # 15.3 K/uL (1.8-7.0) H 02/26/17 06:25 Lymph # 2.8 K/uL (1.0-4.3) 02/26/17 06:25 Harris # 2.1 K/uL (0.0-0.8) H 02/26/17 06:25 Eos # 0.0 K/uL (0.0-0.7) 02/26/17 06:25 Baso # 0.0 K/uL (0.0-0.2) 02/26/17 06:25 Neutrophils % (Manual) 87 % (50-75) H 02/25/17 05:53 Band Neutrophils % 3 % (0-2) H 02/25/17 05:53 Lymphocytes % (Manual) 3 % (20-40) L 02/25/17 05:53 Reactive Lymphs % 1 % (0-0) H 02/25/17 05:53 Monocytes % (Manual) 5 % (0-10) 02/25/17 05:53 Eosinophils % (Manual) 2 % (0-4) 02/22/17 15:21 Myelocytes % 1 % (0-0) H 02/25/17 05:53 Platelet Estimate Normal (NORMAL) 02/25/17 05:53 Large Platelets Present 02/25/17 05:53 RBC Morphology Normal 02/24/17 11:06 Basophilic Stippling Slight 02/25/17 05:53 Sodium 138 mmol/L (132-148) 02/26/17 06:25 Potassium 4.5 mmol/L (3.6-5.2) 02/26/17 06:25 Chloride 101 mmol/L (98-107) 02/26/17 06:25 Carbon Dioxide 28 mmol/L (22-30) 02/26/17 06:25 Anion Gap 13 (10-20) 02/26/17 06:25 BUN 18 mg/dL (7-17) H 02/26/17 06:25 Creatinine 0.9 MG/DL (0.7-1.2) 02/26/17 06:25 Est GFR ( Amer) > 60 02/26/17 06:25 Est GFR (Non-Af Amer) > 60 02/26/17 06:25 Random Glucose 94 mg/dL (65-105) 02/26/17 06:25 Calcium 8.6 mg/dl (8.6-10.4) 02/26/17 06:25 Phosphorus 4.1 mg/dL (2.5-4.5) 02/26/17 06:25 Magnesium 2.3 mg/dL (1.6-2.3) 02/26/17 06:25 Total Bilirubin 0.5 mg/dL (0.2-1.3) 02/26/17 06:25 AST 18 U/L (14-36) 02/26/17 06:25 ALT 29 U/L (9-52) 02/26/17 06:25 Alkaline Phosphatase 73 U/L (38-126) 02/26/17 06:25 Total Protein 6.8 g/dL (6.3-8.3) 02/26/17 06:25 Albumin 3.7 g/dL (3.5-5.0) 02/26/17 06:25 Globulin 3.1 gm/dL (2.2-3.9) 02/26/17 06:25 Albumin/Globulin Ratio 1.2 (1.0-2.1) 02/26/17 06:25 Free T4 0.83 ng/dL (0.78-2.19) 02/26/17 06:25 TSH 3rd Generation 0.59 mIU/L (0.46-4.68) 02/26/17 06:25 Urine Color Yellow (YELLOW) 02/24/17 12:56 Urine Clarity Clear (Clear) 02/24/17 12:56 Urine pH 6.0 (5.0-8.0) 02/24/17 12:56 Ur Specific [place] 1.023 (1.003-1.030) 02/24/17 12:56 Urine Protein Negative mg/dL (NEGATIVE) 02/24/17 12:56 Urine Glucose (UA) 1+ mg/dL (Normal) 02/24/17 12:56 Urine Ketones Negative mg/dL (NEGATIVE) 02/24/17 12:56 Urine Blood Negative (NEGATIVE) 02/24/17 12:56 Urine Nitrate Negative (NEGATIVE) 02/24/17 12:56 Urine Bilirubin Negative (NEGATIVE) 02/24/17 12:56 Urine Urobilinogen Normal mg/dL (0.2-1.0) 02/24/17 12:56 Ur Leukocyte Esterase Neg Abimbola/uL (Negative) 02/24/17 12:56 Urine WBC (Auto) 6 /hpf (0-5) H 02/24/17 12:56 Urine RBC (Auto) 1 /hpf (0-3) 02/24/17 12:56 Ur Squamous Epith Cells 2 /hpf (0-5) 02/24/17 12:56 Vancomycin Trough 6.8 ug/mL (5.0-10.0) 02/25/17 05:53 Influenza Typ A,B (EIA) Negative for flu a/b (NEGATIVE) 02/22/17 17:07 - Hospital Course Hospital Course: Upon hospital admission: 51 year old female with PMHx of COPD/emphysema, asthma , chronic back pain, obesity, GERD, depression and anxiety presents for 2 week history of worsening cough and SOB. Patient reports she has been feeling SOB for the past 2 weeks. She uses her inhaler on a daily basis, a couple of times a day. She has not been ambulating much, but when she does she becomes SOB. Admits she came to the hospital because SOB began to worsen over the past 2 days. She reports waking up in the middle of the night with cough and SOB. Admits to subjective fevers yesterday. She is experiencing bilateral rib pain and abdominal pain every time she coughs. Pain is reproducible only with cough. She admits to sick contact (daughter had the flu). She is also experiencing nasal congestion and sore throat for the past 2 days. Denies chills, nausea, vomiting, headache, body aches, dysuria. Admits to chronic constipation. She smokes daily and ambulates with cane. She has never been intubated and denies O2 at home. PMHx: COPD/emphysema, asthma, obesity, GERD, depression and anxiety, chronic back pain, OA. Medications: Albuterol nebs, rescue inhaler, prednisone. Allergies: NKDA Surgery Hx: Bariatric Sx, umbilical Hernia repair, hysterectomy. Social Hx: smokes 2 cigarets per day for the past 20 years, denies alcohol or illicit drug use. Family Hx: mother with brain tumor, father with tobacco abuse. PMD: Dr. Jeong. During hospital course, the patient was evaluated and treated for the following : (1) Asthma exacerbation patient responded well to tx with Duoneb Q6H JULIETA, Solu -Metdrol 40 mg IVP Q8H, Guaifenesin/Codeine Q6H PRN. Peak flow on admission 200 , improved during stay. Patient received 3 Duoneb treatments in the ED, prednisone, tessalon pearls. CXR on admission: No evidence of new infiltrate or consolidation in the lungs. Mild hyperinflation of the lungs and prominent lung markings are again seen. (2) COPD (chronic obstructive pulmonary disease) with emphysema for which patient was treated with the medications above. (3) URI ( upper respiratory infection) with tenderness to the R throat and voice muffling. ENT Dr. Delvalle was consulted, who found no acute pathology after negative Laryngoscope, CT neck, and physical exam. CT soft tissue neck with contrast: (a). Severe ethmoid sinusitis and fluid levels in the maxillary sinuses and right sphenoid chamber which may represent acute sinusitis in the appropriate clinical setting. (b). Moderate adenoid hypertrophy which could be seen in the setting of recent infection. (c). No evidence of peritonsillar abscess, bulky mass or pathologic lymphadenopathy. During her stay, the patient often refused IV abx, and was switched to Avelox 400 PO daily. Patient also refused MRI neck to look for lesions. She received 2 days of Zosyn 3.375 IVPB Q6H (/) (stopped 4/5, pt refusing IVs) and Vanco 1Gm IVPB BID (02/23) (stopped 4 /5, pt refusing IVs). (4) Leukocytosis with UC - negative; UA negative, -Blood culture- negative and antibiotics adjusted as described above. (5) Sleep Apnea for which Dr. Christine (pulmonology) was cosulted and recommended CPAP of 10, Rate 12 - to be worn at night. Patient did well with this regimen and appeared more energetic after only 1 evening of CPAP. (6) Rib pain Secondary to cough tx with antitussive and Motrin 400 mg PO Q6 PRN pain. (7) Hypothyroidism - ruled out with Thyroid ultrasound negative; and TSH/free T4 - WNL. (8) Of note, patient has been noted to lie to cafeteria workers in order to get at least 3 separate breakfast servings. Both the nurses and the medicine team are concerned that she is over-eating. She admits that she has gained nearly 100lbs over the last year, and how this directly affects her sleep apnea has been discussed extensively. The plan is for her to follow up as an outpatient for further sleep study analysis. Upon hospital discharge, the patient was provided with the following instructions: Patient is stable for discharge per Dr. Hess. Patient should resume all medications as outlined in this document. Additionally, patient should take the new medications listed below (scripts provided). 1. Please make an appointment and follow up with your Primary Doctor, Dr. Jeong within one week of discharge. 2. Please obtain a referral from your PMD for a Pulmonology evaluation for sleep apnea. While you were in the hospital, you benefited from a CPAP setting of PEEP 10, FiO2 30 while sleeping. Patient should return to ED immediately if symptoms return or worsen. Instructions discussed with patient who understood and agreed. Newly prescribed medications: Advair Diskus 1 puff IH Q12 #30days Lasix 20mg PO daily #30 Avelox 400mg PO daily #5 Prednisone 10mg PO daily #12 (Taper Instructions: Days 1-4: 20mg daily; Days 5- 8: 10mg daily). This is a summary of the patient's hospital admission, see chart for comprehensive detail. - Date & Time of H&P Date of H&P: 02/22/17 Time of H&P: 21:14 Discharge Exam - Additional Findings Additional findings: - Constitutional Appears: Non-toxic, No Acute Distress - Head Exam Head Exam: NORMAL INSPECTION, NORMOCEPHALIC - Eye Exam Eye Exam: EOMI, Normal appearance - ENT Exam ENT Exam: Mucous Membranes Moist -Tender to palpation of b/l neck (improved) - Neck Exam Neck exam: Positive for: Full Rom, Normal Inspection - Respiratory Exam Respiratory Exam: Decreased Breath Sounds, Wheezes (improving). absent: Rales, Rhonchi, Chest wall tenderness - Cardiovascular Exam Cardiovascular Exam: REGULAR RHYTHM, +S1, +S2 - GI/Abdominal Exam GI & Abdominal Exam: Normal Bowel Sounds, Soft. absent: Distended, Guarding, Hernia, Tenderness - Extremities Exam Extremities exam: Positive for: full ROM, normal inspection, tenderness. Negative for: pedal edema - Back Exam Back exam: NORMAL INSPECTION. absent: FULL ROM, rash noted - Neurological Exam Neurological exam: Alert, Oriented x3 - Psychiatric Exam Psychiatric exam: Normal Affect, Normal Mood. absent: Agitated, Anxious - Skin Skin Exam: Dry, Normal Color, Warm Discharge Plan - Discharge Medications Prescriptions: Fluticasone/Salmeterol 250/50 [Advair Diskus] 1 puff IH Q12 30 Days Furosemide [Lasix] 20 mg PO DAILY 30 Days Moxifloxacin [Avelox] 400 mg PO DAILY #5 tab predniSONE [predniSONE Tab] 10 mg PO DAILY #12 tab - Follow Up Plan Condition: FAIR Disposition: HOME/ ROUTINE Instructions: Asthma (ED), Depression (DC), Depression (GEN) Additional Instructions: Patient is stable for discharge per Dr. Hess. Patient should resume all medications as outlined in this document. Additionally, patient should take the new medications listed below (scripts provided). 1. Please make an appointment and follow up with your Primary Doctor, Dr. Jeong within one week of discharge. 2. Please obtain a referral from your PMD for a Pulmonology evaluation for sleep apnea. While you were in the hospital, you benefited from a CPAP setting of PEEP 10, FiO2 30 while sleeping. Patient should return to ED immediately if symptoms return or worsen. Instructions discussed with patient who understood and agreed. Newly prescribed medications: Advair Diskus 1 puff IH Q12 #30days Lasix 20mg PO daily #30 Avelox 400mg PO daily #5 Prednisone 10mg PO daily #12 (Taper Instructions: Days 1-4: 20mg daily; Days 5- 8: 10mg daily). <Torito Hess - Last Filed: 02/28/17 08:46> Provider - Provider Date of Admission: 02/23/17 20:09 Attending physician: Torito Hess DO Hospital Course - Lab Results Lab Results: Micro Results 02/24/17 12:55 Urine,Clean Catch Urine Culture - Final No Growth (<1,000 CFU/ML) Most Recent Lab Values WBC 20.2 K/uL (4.8-10.8) H 02/26/17 06:25 RBC 4.75 Mil/uL (3.80-5.20) 02/26/17 06:25 Hgb 12.8 g/dL (11.0-16.0) 02/26/17 06:25 Hct 39.3 % (34.0-47.0) 02/26/17 06:25 MCV 82.6 fL (81.0-99.0) 02/26/17 06:25 MCH 26.9 pg (27.0-31.0) L 02/26/17 06:25 MCHC 32.6 g/dL (33.0-37.0) L 02/26/17 06:25 RDW 14.5 % (11.5-14.5) 02/26/17 06:25 Plt Count 365 K/uL (130-400) 02/26/17 06:25 MPV 8.6 fL (7.2-11.7) 02/26/17 06:25 Neut % (Auto) 75.5 % (50.0-75.0) H 02/26/17 06:25 Lymph % (Auto) 13.9 % (20.0-40.0) L 02/26/17 06:25 Harris % (Auto) 10.4 % (0.0-10.0) H 02/26/17 06:25 Eos % (Auto) 0.1 % (0.0-4.0) 02/26/17 06:25 Baso % (Auto) 0.1 % (0.0-2.0) 02/26/17 06:25 Neut # 15.3 K/uL (1.8-7.0) H 02/26/17 06:25 Lymph # 2.8 K/uL (1.0-4.3) 02/26/17 06:25 Harris # 2.1 K/uL (0.0-0.8) H 02/26/17 06:25 Eos # 0.0 K/uL (0.0-0.7) 02/26/17 06:25 Baso # 0.0 K/uL (0.0-0.2) 02/26/17 06:25 Neutrophils % (Manual) 87 % (50-75) H 02/25/17 05:53 Band Neutrophils % 3 % (0-2) H 02/25/17 05:53 Lymphocytes % (Manual) 3 % (20-40) L 02/25/17 05:53 Reactive Lymphs % 1 % (0-0) H 02/25/17 05:53 Monocytes % (Manual) 5 % (0-10) 02/25/17 05:53 Eosinophils % (Manual) 2 % (0-4) 02/22/17 15:21 Myelocytes % 1 % (0-0) H 02/25/17 05:53 Platelet Estimate Normal (NORMAL) 02/25/17 05:53 Large Platelets Present 02/25/17 05:53 RBC Morphology Normal 02/24/17 11:06 Basophilic Stippling Slight 02/25/17 05:53 Sodium 138 mmol/L (132-148) 02/26/17 06:25 Potassium 4.5 mmol/L (3.6-5.2) 02/26/17 06:25 Chloride 101 mmol/L (98-107) 02/26/17 06:25 Carbon Dioxide 28 mmol/L (22-30) 02/26/17 06:25 Anion Gap 13 (10-20) 02/26/17 06:25 BUN 18 mg/dL (7-17) H 02/26/17 06:25 Creatinine 0.9 MG/DL (0.7-1.2) 02/26/17 06:25 Est GFR ( Amer) > 60 02/26/17 06:25 Est GFR (Non-Af Amer) > 60 02/26/17 06:25 Random Glucose 94 mg/dL (65-105) 02/26/17 06:25 Calcium 8.6 mg/dl (8.6-10.4) 02/26/17 06:25 Phosphorus 4.1 mg/dL (2.5-4.5) 02/26/17 06:25 Magnesium 2.3 mg/dL (1.6-2.3) 02/26/17 06:25 Total Bilirubin 0.5 mg/dL (0.2-1.3) 02/26/17 06:25 AST 18 U/L (14-36) 02/26/17 06:25 ALT 29 U/L (9-52) 02/26/17 06:25 Alkaline Phosphatase 73 U/L (38-126) 02/26/17 06:25 Total Protein 6.8 g/dL (6.3-8.3) 02/26/17 06:25 Albumin 3.7 g/dL (3.5-5.0) 02/26/17 06:25 Globulin 3.1 gm/dL (2.2-3.9) 02/26/17 06:25 Albumin/Globulin Ratio 1.2 (1.0-2.1) 02/26/17 06:25 Free T4 0.83 ng/dL (0.78-2.19) 02/26/17 06:25 TSH 3rd Generation 0.59 mIU/L (0.46-4.68) 02/26/17 06:25 Urine Color Yellow (YELLOW) 02/24/17 12:56 Urine Clarity Clear (Clear) 02/24/17 12:56 Urine pH 6.0 (5.0-8.0) 02/24/17 12:56 Ur Specific [place] 1.023 (1.003-1.030) 02/24/17 12:56 Urine Protein Negative mg/dL (NEGATIVE) 02/24/17 12:56 Urine Glucose (UA) 1+ mg/dL (Normal) 02/24/17 12:56 Urine Ketones Negative mg/dL (NEGATIVE) 02/24/17 12:56 Urine Blood Negative (NEGATIVE) 02/24/17 12:56 Urine Nitrate Negative (NEGATIVE) 02/24/17 12:56 Urine Bilirubin Negative (NEGATIVE) 02/24/17 12:56 Urine Urobilinogen Normal mg/dL (0.2-1.0) 02/24/17 12:56 Ur Leukocyte Esterase Neg [place]imbola/uL (Negative) 02/24/17 12:56 Urine WBC (Auto) 6 /hpf (0-5) H 02/24/17 12:56 Urine RBC (Auto) 1 /hpf (0-3) 02/24/17 12:56 Ur Squamous Epith Cells 2 /hpf (0-5) 02/24/17 12:56 Vancomycin Trough 6.8 ug/mL (5.0-10.0) 02/25/17 05:53 Influenza Typ A,B (EIA) Negative for flu a/b (NEGATIVE) 02/22/17 17:07 Attending/Attestation - Attestation I have personally seen and examined this patient.: Yes I have fully participated in the care of the patient.: Yes I have reviewed all pertinent clinical information, including history, physical exam and plan: Yes Notes (Text): 02/28/17 08:44 Medical attending: Patient was seen and examined by me, agrees the above note by mobile paramedical examiner. I had a very extensive discussion with the patient with regards to her weight, explained that we really concerned that her weight increases are going to be contributing significantly to her difficulty breathing as well as asthma. I explained to her that we can give medication and that she should be on medication for her asthma however if she were able to lose some weight it would help significantly with her breathing difficulties. I also advised her to follow -up with whoever her primary medical doctor is because she is very likely going to need a sleep study. While here we did try her during the night on some CPAP. It needs to be noted that the nurses are very concerned that the patient is taking excessive amounts of food and they explained to me on more than one occasion that sometimes the patient will take several trays of breakfasts for example when she is not supposed to. And that they've had to try to prevent family members from bringing in extra food as well. For now she's can be on Advair twice a day, rescue inhalers, as well as tapering dose of prednisone Thank you very much, Torito Hess
== END 2017-02-27 18:30 | disposition home or self-care (01) | DRG 190 ==
LOC: C.ER 14:20 → C.9E 19:40 → INTOOBSV 21:25 → OBSVTOIN 21:25 → C.3T 22:09 → OBSVTOIN 02-23 20:09
PROVIDERS: ADMIT Hospitalist; ATTEND Hospitalist
PROC: 0CJS8ZZ Inspection of Larynx, Via Natural or Artificial Opening Endoscopic (ICD-10-PCS; principal; 2017-02-24)
PROC: 5A09357 Assistance with Respiratory Ventilation, Less than 24 Consecutive Hours, Continuous Positive Airway Pressure (ICD-10-PCS; 2017-02-27)
DX: J44.1 Chronic obstructive pulmonary disease with (acute) exacerbation (principal); J18.9 Pneumonia, unspecified organism; J45.901 Unspecified asthma with (acute) exacerbation; I10 Essential (primary) hypertension; G89.29 Other chronic pain; M54.9 Dorsalgia, unspecified; F41.9 Anxiety disorder, unspecified; F32.9 Major depressive disorder, single episode, unspecified; E66.9 Obesity, unspecified; K21.9 Gastro-esophageal reflux disease without esophagitis; F17.210 Nicotine dependence, cigarettes, uncomplicated; J06.9 Acute upper respiratory infection, unspecified; G47.33 Obstructive sleep apnea (adult) (pediatric); M54.2 Cervicalgia; T38.0X5A Adverse effect of glucocorticoids and synthetic analogues, initial encounter; D72.829 Elevated white blood cell count, unspecified; J01.20 Acute ethmoidal sinusitis, unspecified

== ENCOUNTER 2018-08-30 16:24 | Emergency (ER) | payer MEDICARE, OTHER ==
[2018-08-30 16:25] VITALS: BMI 49.6
--- NOTE | 2018-08-30 19:24 | C.PDOC ---
History Of Present Illness 53 y/o F c PMHx COPD, GERD, ventral hernia repair, chronic back pain on Percocet p/w epigastric pain x 4 months. Constant, nonradiating, no relief with antacids. Associated with nausea without vomiting. Also reports lightheadedness. Time Seen by Provider: 08/30/18 18:57 Chief Complaint (Nursing): Abdominal Pain Past Medical History Vital Signs: Last Vital Signs Temp 98.3 F 08/30/18 16:42 Pulse 89 08/30/18 16:42 Resp 19 08/30/18 16:42 BP 117/76 08/30/18 16:42 Pulse Ox 98 08/30/18 16:42 - Medical History PMH: Anxiety, Asthma, Back Problems, COPD, Depression, HTN Denies: Chronic Kidney Disease Surgical History: Hernia Repair - [facility] Procedures ASSISTANCE WITH RESPIRATORY VENTILATION, <24 HRS, CPAP (02/23/17) INSPECTION OF LARYNX, ENDO (02/23/17) OTH & OPEN REP OTH HERNIA OF ANTER ABD WALL W [facility] OR PROSTH (11/02/13) Family History: States: No Known Family Hx - Social History Hx Tobacco Use: No Hx Alcohol Use: No Hx Substance Use: No - Immunization History Hx Tetanus Toxoid Vaccination: No Hx Influenza Vaccination: Yes Hx Pneumococcal Vaccination: No Review Of Systems Except As Marked, All Systems Reviewed And Found Negative. Constitutional: Negative for: Fever Cardiovascular: Negative for: Chest Pain Gastrointestinal: Positive for: Nausea, Abdominal Pain. Negative for: Vomiting Physical Exam - Physical Exam Additional Physical Exam Comments: Gen: NAD Head: NC/AT Eyes: PERRL ENT: MMM Neck: Supple Chest: No tenderness CV: Regular rate lungs: CTA b/l Abd: Soft, epigastric tenderness Back: No CVA tenderness Skin: No rash Extremities: No edema Neuro: Alert, no focal deficit ED Course And Treatment - Laboratory Results Result Diagrams: 08/30/18 19:49 08/30/18 19:49 O2 Sat by Pulse Oximetry: 98 - CT Scan/US CT ABD/PELVIS Other Rad Studies (CT/US): Read By Radiologist CT/US Interpretation: Name:DURGA SCHULER Exam Date:Aug 30, 2018 9:24:39 PM EDT. Modality Type:CT. Description:CT - ABDOMEN AND PELVIS. Gender:F Laterality:Not applicable. :67 Referring Physician:Deangelo Charles). EXAM: CT Abdomen and Pelvis with IV contrast 100 mL of Omnipaque 350. DLP 1187. CLINICAL HISTORY: Ruq pain. s/p hernia repairs 5 years ago. TECHNIQUE: Axial computed tomography images of the abdomen and pelvis with intravenous contrast. CONTRAST: With intravenous contrast. COMP ARISON: None provided. FINDINGS: LUNG BASES: 5 mm pleural-based nodule image #1 posterior basal segment right lung. Borderline in size heart. LIVER: Unremarkable. GALLBLADDER AND BILE DUCTS: The gallbladder appears within normal limits. No radioopaque gallstones are seen. No biliary ductal dilatation is evident. PANCREAS: Unremarkable. SPLEEN: Unremarkable. ADRENAL GLANDS: Unremarkable. KIDNEYS, URETERS, AND BLADDER: The kidneys appear within normal limits. There is no hydronephrosis or hydroureter. No urinary calculi are seen. STOMACH AND BOWEL: Abdominal wall: Large umbilical hernia containing transverse colon without inflammatory changes. several centimeters below the umbilical hernia is a second midline hernia large, containing fat. APPENDIX: No evidence of acute appendicitis on CT examination. PERITONEUM: No free fluid. No free air. LYMPH NODES: No lymphadenopathy is evident. REPRODUCTIVE: Unremarkable as visualized. VASCULATURE: No evidence of abdominal aortic aneurysm. BONES: No aggressive appearing osseous lesion. No acute osseous pathology evident. IMPRESSION: 1. 5 mm pleural-based nodule image #1 posterior basal segment right lung. 2. Borderline in size. 3. Abdominal wall: Large umbilical hernia containing transverse colon without inflammatory changes. . Electronically signed on Aug 30, 2018 10:00:16 PM EDT by: Pablo Wild M.D., Certified by [facility] Medical Decision Making Medical Decision Making: EKG for atypical presentation of chest pain. CT abdomen/pelvis c IV. GERD/gastritis, r/o bowel obstruction, biliary disease, pancreatitis, colitis/ileitis EKG NSR 80 bpm, no ST/T wave changes. Disposition - Disposition Referrals: Neil Epperson MD [Staff Provider] - Disposition: HOME/ ROUTINE Disposition Time: 22:00 Condition: STABLE Additional Instructions: Name:DURGA SCHULER Exam Date:Aug 30, 2018 9:24:39 PM EDT. Modality Type:CT. Description:CT - ABDOMEN AND PELVIS. Gender:F Laterality:Not applicable. :67 Referring Physician:Deangelo Charles). EXAM: CT Abdomen and Pelvis with IV contrast 100 mL of Omnipaque 350. DLP 1187. CLINICAL HISTORY: Ruq pain. s/p hernia repairs 5 years ago. TECHNIQUE: Axial computed tomography images of the abdomen and pelvis with intravenous contrast. CONTRAST: With intravenous contrast. COMPARISON: None provided. FINDINGS: LUNG BASES: 5 mm pleural-based nodule image #1 posterior basal segment right lung. Borderline in size heart. LIVER: Unremarkable. GALLBLADDER AND BILE DUCTS: The gallbladder appears within normal limits. No radioopaque gallstones are seen. No biliary ductal dilatation is evident. PANCREAS: Unremarkable. SPLEEN: Unremarkable. ADRENAL GLANDS: Unremarkable. KIDNEYS, URETERS, AND BLADDER: The kidneys appear within normal limits. There is no hydronephrosis or hydroureter. No urinary calculi are seen. STOMACH AND BOWEL: Abdominal wall: Large umbilical hernia containing transverse colon without inflammatory changes. several centimeters below the umbilical hernia is a second midline hernia large, containing fat. APPENDIX: No evidence of acute appendicitis on CT examination. PERITONEUM: No free fluid. No free air. LYMPH NODES: No lymphadenopathy is evident. REPRODUCTIVE: Unremarkable as visualized. VASCULATURE: No evidence of abdominal aortic aneurysm. BONES: No aggressive appearing osseous lesion. No acute osseous pathology evident. IMPRESSION: 1. 5 mm pleural-based nodule image #1 posterior basal segment right lung. 2. Borderline in size. 3. Abdominal wall: Large umbilical hernia containing transverse colon without inflammatory changes. . Electronically signed on Aug 30, 2018 10:00:16 PM EDT by: Pablo Wild M.D., Certified by [facility] Instructions: Abdominal Hernia Repair (DC) Forms: [employer] (Yoruba) - Clinical Impression Clinical Impression: Hernia
[2018-08-30 19:44] LABS: SQUAMOUS EPITHIAL 2 /hpf (0-5); URINE BACTERIA RARE (<OCC); URINE BILIRUBIN NEGATIVE (NEGATIVE); URINE BLOOD 3+ (NEGATIVE); URINE CLARITY Clear (Clear); URINE COLOR Yellow (YELLOW); URINE GLUCOSE (UA) NORMAL (Normal); URINE LEUKOCYTE ESTERASE NEG Leu/uL (Negative); URINE PROTEIN 1+ mg/dL (NEGATIVE); URINE UROBILINOGEN NORMAL mg/dL (0.2-1.0)
[2018-08-30 20:02] LABS: BASO # 0.2 K/uL (0.0-0.2); BASO % 1.3 % (0.0-2.0); EOS # 0.2 K/uL (0.0-0.7); EOS % 1.6 % (0.0-4.0); HEMOGLOBIN 14.2 g/dL (11.0-16.0); LYMPH # 2.1 K/uL (1.0-4.3); LYMPH % 15.2 % (20.0-40.0); MEAN CELL VOLUME 82.2 fL (81.0-99.0); MEAN CORPUSCULAR HEMOGLOBIN 27.4 pg (27.0-31.0); MEAN CORPUSCULAR HGB CONC 33.3 g/dL (33.0-37.0); MEAN PLATELET VOLUME 8.3 fL (7.2-11.7); MONO # 0.7 K/uL (0.0-0.8); MONO % 5.2 % (0.0-10.0); NEUT # 10.7 K/uL (1.8-7.0); NEUT % 76.7 % (50.0-75.0); NRBC % 0.1 % (0.0-2.0); RBC 5.19 Mil/uL (3.80-5.20); RED CELL DISTRIBUTION WIDTH 14.5 % (11.5-14.5); WHITE BLOOD COUNT 13.9 K/uL (4.8-10.8)
[2018-08-30 20:29] LABS: ALB/GLOB RATIO 1.2 (1.0-2.1); ALBUMIN 4.1 g/dL (3.5-5.0); ALT/SGPT 19 U/L (9-52); AST/SGOT 20 U/L (14-36); BLOOD UREA NITROGEN 11 mg/dL (7-17); CALCIUM 9.1 mg/dl (8.6-10.4); GFR NON-AFRICAN AMERICAN > 60; LIPASE 44 U/L (23-300)
[2018-08-30] MEDS ORDERED: Iohexol 350mg/ml 100 ML ONE (20:42)
[2018-08-30 22:21] VITALS: RESP 20
[2018-08-30 22:51] VITALS: O2SAT 98
[2018-08-30 23:14] VITALS: BP 112/77; PULSE 77; TEMP 98.5
--- NOTE | 2018-08-31 10:59 | CT ---
Date of service: 08/30/2018 PROCEDURE: CT Abdomen and Pelvis with contrast HISTORY: abdominal pain, nausea COMPARISON: 02/18/2012 TECHNIQUE: Contrast dose: Radiation dose: Total exam DLP = mGy-cm. This CT exam was performed using one or more of the following dose reduction techniques: Automated exposure control, adjustment of the mA and/or kV according to patient size, and/or use of iterative reconstruction technique. FINDINGS: LOWER THORAX: No infiltrate/effusion. 5 mm pleural-based nodule medial right lower lobe for which no follow-up evaluation is advised. LIVER: Unremarkable. No gross lesion or ductal dilatation. GALLBLADDER AND BILE DUCTS: Unremarkable. PANCREAS: Unremarkable. No gross lesion or ductal dilatation. SPLEEN: Unremarkable. ADRENALS: Unremarkable. No mass. KIDNEYS AND URETERS: Nonobstructing 1.3 cm left renal pelvic calculus. Left lower pole cortical mass, 2.7 cm, measuring 24 Hounsfield units. Not present in 2011. Consider correlation with ultrasound examination. Second lower pole cortical mass, 2.2 cm, 11 Hounsfield units. Likely renal cyst. No other renal mass. No hydronephrosis. VASCULATURE: Unremarkable. No aortic aneurysm. BOWEL: Unremarkable. No obstruction. No gross mural thickening. APPENDIX: Not definitely identified. PERITONEUM: No ascites or pneumoperitoneum. Three periumbilical ventral hernias, the most cephalad of which contains nonobstructed loops of:. The 2 more caudal periumbilical ventral hernias containing only mesenteric fat. LYMPH NODES: Unremarkable. No enlarged lymph nodes. BLADDER: Decompressed REPRODUCTIVE: Status post hysterectomy BONES: No acute fracture. OTHER FINDINGS: None. IMPRESSION: No acute abnormality. Multiple ventral hernias 1 of which contains nonobstructed loops of large intestine in the others contain only mesenteric fat. Nonobstructing 13 mm left renal pelvic calculus. Several left renal cysts for which evaluation with renal ultrasound examination is advised on a nonemergent basis. The preliminary findings for this examination were reported by [facility] at 10 p.m. on 08/30/2018. There is discordance of this report with the preliminary findings. The presence of a 13 mm left renal pelvic calculus, nonobstructing, was not described in the preliminary report of this examination.
--- NOTE | 2018-09-01 08:05 | CARD ---
APPROVED REPORT Date of service: 08/30/2018 EKG Measurement Heart [id number] <Conclusion> Normal sinus rhythm Normal ECG
== END 2018-08-30 23:20 | disposition home or self-care (01) ==
LOC: C.ER 16:24
DX: K42.9 Umbilical hernia without obstruction or gangrene (principal); I10 Essential (primary) hypertension; F17.210 Nicotine dependence, cigarettes, uncomplicated
CPT/HCPCS: 74177; 80053; 81001; 83690; 85025; 87086; 93005; 99285; Q9967

== ENCOUNTER 2019-01-07 17:51 | Emergency (ER) | payer MEDICARE, MEDICAID ==
[2019-01-07 17:56] VITALS: BMI 55.4
[2019-01-07 18:00] VITALS: RESP 18
[2019-01-07] MEDS ORDERED: Sodium Chloride 0.9% 1,000 ML IV STA (18:34)
--- NOTE | 2019-01-07 18:35 | C.PDOC ---
History Of Present Illness 53yo female, with history of abdominal hernia, hypertension, COPD, back pains, comes to ER reporting left sided abdominal pain. Patient reports 7 episodes of non-bloody, non-bilious vomiting. She has not had a bowel movement today, but denies any constipation. Patient also denies any lower abdominal pain, urinary symptoms. No additional medical complaints. PMD: Dr. Kvein Time Seen by Provider: 01/07/19 18:29 Chief Complaint (Nursing): Abdominal Pain History Per: Patient History/Exam Limitations: no limitations Onset/Duration Of Symptoms: Hrs Current Symptoms Are (Timing): Still Present Location Of Pain/Discomfort: LUQ, LLQ Quality Of Discomfort: "Pain" Associated Symptoms: Vomiting. denies: Diarrhea, Constipation, Urinary Symptoms Additional History Per: Patient Past Medical History Reviewed: Historical Data, Nursing Documentation, Vital Signs Vital Signs: Last Vital Signs Temp 98.4 F 01/07/19 17:56 Pulse 74 01/07/19 17:56 Resp 18 01/07/19 17:56 BP 134/80 01/07/19 17:56 Pulse Ox 98 01/07/19 17:56 - Medical History PMH: Anxiety, Asthma, Back Problems, COPD, Depression, Emphysema, HTN Denies: Chronic Kidney Disease Surgical History: Hernia Repair - [facility] Procedures ASSISTANCE WITH RESPIRATORY VENTILATION, <24 HRS, CPAP (02/23/17) INSPECTION OF LARYNX, ENDO (02/23/17) OTH & OPEN REP OTH HERNIA OF ANTER ABD WALL W [facility] OR PROSTH (11/02/13) Family History: States: No Known Family Hx - Social History Hx Tobacco Use: No Hx Alcohol Use: No Hx Substance Use: No - Immunization History Hx Tetanus Toxoid Vaccination: Yes Hx Influenza Vaccination: Yes Hx Pneumococcal Vaccination: Yes Review Of Systems Except As Marked, All Systems Reviewed And Found Negative. Gastrointestinal: Negative for: Constipation Genitourinary: Negative for: Dysuria Physical Exam - Physical Exam Additional Physical Exam Comments: Constitutional: No acute distress. Obese. Head: Normocephalic. Atraumatic. Eyes: PERRL. ENT: Moist mucous membranes. Neck: Supple. Cardiovascular: Regular rate. Radial pulse 2+ bilaterally. Chest: No tenderness. Respiratory: Clear to auscultation bilaterally. GI: Ventral hernia noted. Left sided tenderness with guarding. Back: No CVA tenderness. Musculoskeletal: No tenderness or swelling of extremities. Skin: No rash. Neurologic: Alert, no focal deficit. ED Course And Treatment - Laboratory Results Result Diagrams: 01/07/19 18:39 01/07/19 18:39 O2 Sat by Pulse Oximetry: 98 (RA) Pulse Ox Interpretation: Normal Medical Decision Making Medical Decision Mak[place] female, presents with left sided abdominal pain Plan: -- Labs -- CT A/P with IV contrast -- Morphine 2mg IV -- Zofran 8mg IV -- IV Fluids -- Urinalysis 2035 CT Abdomen/Pelvis IMPRESSION: 1. A supraumbilical-umbilical ventral hernia is present which contains a segment of small intestine and fat. No evidence of strangulation. 2. A 1.3 cm obstructing calculus is lodged at the left UPJ. This creates associated moderate left hydronephrosis. 3. A small hiatal hernia is present. 4. A 2.1 x 2.3 cm cortical cyst arises from the posterior lateral lower left renal pole. 5. Status post hysterectomy. Dr. Rivera states patient can see him in office on Thursday. Pain controlled with toradol. VAMP CREASER checked, counseled on risks. Disposition Discussed With : Ian Rivera Jr. - Disposition Referrals: Ian Rivera Jr., MD [Staff Provider] - Disposition: HOME/ ROUTINE Disposition Time: 20:36 Condition: STABLE Prescriptions: Ibuprofen [Motrin] 600 mg PO Q6 #25 tab Ondansetron ODT [Zofran ODT] 4 mg PO Q8 #12 odt oxyCODONE/Acetaminophen [Percocet 5/325 mg Tab] 1 tab PO Q6 #16 tab Tamsulosin [Flomax] 0.4 mg PO DAILY #5 cap Instructions: Kidney Stones (DC) Forms: [employer] (Sinhala) - Clinical Impression Clinical Impression: Kidney stone - Scribe Statement The provider has reviewed the documentation as recorded by the Sarah Yoon Provider Attestation: All medical record entries made by the Olenaibmax were at my direction and personally dictated by me. I have reviewed the chart and agree that the record accurately reflects my personal performance of the history, physical exam, medical decision making, and the department course for this patient. I have also personally directed, reviewed, and agree with the discharge instructions and disposition.
[2019-01-07] MEDS ORDERED: Sodium Chloride 0.9% 1,000 ML ONE (18:41)
[2019-01-07 18:43] LABS: BASO # 0.1 K/uL (0.0-0.2); BASO % 0.6 % (0.0-2.0); EOS % 0.2 % (0.0-4.0); HEMOGLOBIN 15.5 g/dL (11.0-16.0); LYMPH # 1.1 K/uL (1.0-4.3); LYMPH % 6.7 % (20.0-40.0); MEAN CELL VOLUME 84.1 fL (81.0-99.0); MEAN CORPUSCULAR HEMOGLOBIN 26.7 pg (27.0-31.0); MEAN CORPUSCULAR HGB CONC 31.8 g/dL (33.0-37.0); MEAN PLATELET VOLUME 8.7 fL (7.2-11.7); MONO # 0.7 K/uL (0.0-0.8); MONO % 4.3 % (0.0-10.0); NEUT # 14.4 K/uL (1.8-7.0); NEUT % 88.2 % (50.0-75.0); PLATELET COUNT 407 K/uL (130-400); RED CELL DISTRIBUTION WIDTH 14.5 % (11.5-14.5); WHITE BLOOD COUNT 16.3 K/uL (4.8-10.8)
[2019-01-07 18:55] LABS: ALB/GLOB RATIO 1.2 (1.0-2.1); ALBUMIN 4.5 g/dL (3.5-5.0); BLOOD UREA NITROGEN 13 mg/dL (7-17); CALCIUM 9.6 mg/dl (8.6-10.4); GFR NON-AFRICAN AMERICAN 52; LIPASE 18 U/L (23-300)
[2019-01-07 18:56] LABS: ALT/SGPT 9 U/L (9-52); AST/SGOT 27 U/L (14-36)
[2019-01-07] MEDS ORDERED: Iohexol 300 100 ML IJ ONE (19:25)
[2019-01-07 19:45] LABS: BANDS 2 % (0-2); MONOCYTE 5 % (0-10); NEUTROPHIL 84 % (50-75); PLATELET ESTIMATE NORMAL (NORMAL); TOTAL CELLS COUNTED 100
[2019-01-07 19:46] LABS: LYMPHOCYTE 6 % (20-40); REACTIVE LYMPHOCYTES 3 % (0-0)
[2019-01-07 22:23] VITALS: BP 145/80; PULSE 91; TEMP 98.6
[2019-01-07 22:56] VITALS: O2SAT 98
--- NOTE | 2019-01-08 12:13 | CT ---
Date of service: 01/07/2019 PROCEDURE: CT Abdomen and Pelvis with contrast HISTORY: abd pain, vomiting COMPARISON: Comparison is made to the previous study dated 08/30/2018 TECHNIQUE: Contrast dose: 100 mL of Visipaque 320 intravenously. Axial and reformatted coronal and sagittal CT images of the abdomen and pelvis were obtained after IV contrast administration. Radiation dose: Total exam DLP = 1305.54 mGy-cm. This CT exam was performed using one or more of the following dose reduction techniques: Automated exposure control, adjustment of the mA and/or kV according to patient size, and/or use of iterative reconstruction technique. FINDINGS: LOWER THORAX: There is a small hiatus hernia. No evidence of acute pathology in the lungs. No evidence of pleural effusion LIVER: Unremarkable. No gross lesion or ductal dilatation. GALLBLADDER AND BILE DUCTS: Unremarkable. PANCREAS: Unremarkable. No gross lesion or ductal dilatation. SPLEEN: Unremarkable. ADRENALS: Unremarkable. No mass. KIDNEYS AND URETERS: There is interval appearance of [id number] left hydronephrosis due to obstructing 12.5 x 6.9 millimeter calculus at the left UV junction. The left kidney demonstrates delayed enhancement. There is left perinephric stranding seen. The right kidney is grossly unremarkable. No evidence of hydro ureters. There are at least 2 cystic lesion in mid to lower pole of the left kidney. VASCULATURE: Unremarkable. No aortic aneurysm. No aortic atherosclerotic calcification or mural plaque present. BOWEL: Unremarkable. No obstruction. No gross mural thickening. APPENDIX: No evidence of appendicitis. PERITONEUM: Unremarkable. No free fluid. No free air. LYMPH NODES: Unremarkable. No enlarged lymph nodes. BLADDER: Unremarkable. REPRODUCTIVE: The patient is likely status post partial hysterectomy. BONES: No acute fracture. OTHER FINDINGS: Again noted is midline ventral hernia contains short segment of the transverse colon without evidence of bowel obstruction or incarceration. IMPRESSION: Interval appearance of [id number] left hydronephrosis due to obstructing stone at the left UV junction measures 12.5 millimeter in the largest diameter. Delayed enhancement of the left renal cortex and mild left perinephric stranding noted. Otherwise no significant interval changes. Additional findings as discussed above Preliminary report contains concordant findings was submitted by [facility]..
== END 2019-01-07 22:25 | disposition home or self-care (01) ==
LOC: C.ER 17:51
DX: N13.2 Hydronephrosis with renal and ureteral calculous obstruction (principal)
CPT/HCPCS: 74177; 80053; 83690; 85025; 96374; 96375; 99285; J1885; J2270; J2405; J7030; Q9967

== ENCOUNTER 2019-01-20 13:23 | Outpatient (CLI) | payer MEDICARE, MEDICAID | END 2019-01-20 13:24 | disposition home or self-care (01) | LOC: C.EROB 13:23 → C.PAT 13:24 | DX: N20.0 Calculus of kidney (principal) ==

== ENCOUNTER 2019-01-24 12:13 | Day surgery (SDC) | payer MEDICARE, MEDICAID ==
[2019-01-20 13:43] VITALS: BMI 58.5
[2019-01-24] MEDS ORDERED: HYDROmorphone 0.5 mg/0.5 ml ISec IVP PRN (12:16)
[2019-01-24] MEDS ORDERED: Midazolam 2 MG/2 ML VIAL ONE (14:45)
[2019-01-24] MEDS ORDERED: Ciprofloxacin 400mg/200ml D5W 400 MG/200 ML BAG IVPB ONE (14:45)
[2019-01-24] MEDS ORDERED: Propofol 10 mg/ml Inj (20 ML) ONE (14:45)
--- NOTE | 2019-01-24 15:08 | PCM.SURG1 ---
Surgeon's Initial Post Op Note - Surgeon's Notes Surgeon: Miguel Banquet Set Up Person: Mary Type of Anesthesia: General Endo Anesthesia Administered By: staff Pre-Operative Diagnosis: Left upj calculi/hydro Operative Findings: same Post-Operative Diagnosis: same Operation Performed: Cysto stone manipulation insert stent Specimen/Specimens Removed: NA Estimated Blood Loss: EBL {In ML}: 0 Blood Products Given: N/A Date of Surgery/Procedure: 01/24/19 Time of Surgery/Procedure: 15:08
[2019-01-24 16:11] VITALS: RESP 18
[2019-01-24 16:26] VITALS: BP 137/72; PULSE 55; TEMP 97.9; O2SAT 98
--- NOTE | 2019-01-25 02:16 | OP ---
PROCEDURE DATE: 01/24/2019 PREOPERATIVE DIAGNOSES: Left renal colic and left ureteropelvic junction calculi. POSTOPERATIVE DIAGNOSES: Left renal colic and left ureteropelvic junction calculi. PROCEDURE: Cystoscopy, stone manipulation, and insertion of double-J stent. DESCRIPTION OF PROCEDURE: As follows: Prior to the procedure, the patient was asked to sign a detailed informed consent. She is aware that other procedures will be necessary and she is aware of the risks, complications, and limitations of this procedure. She agreed to accept the risks, limitations, and complications. She was brought into the room and a time-out was taken according to rules and regulations of [facility] The patient was given prophylactic Cipro and she was cystoscoped with a #21 Storz panendoscope. Prior to the procedure, the x-ray films had been reviewed and a side check was performed confirming the left side of the stone, and in the x-ray report, the stone was located in the ureteropelvic junction not the ureterovesical junction. The cystoscope was placed and the bladder was visualized. There were no stones within the bladder, the ureteral orifice effluxed clear urine. The left ureteral orifice had no efflux. A guidewire was passed into the left ureteral orifice up to the kidney and the stone was manipulated into the renal pelvis using the guidewire. A 7-Faroese double-J variable length stent was passed over the guidewire and positioned with the distal end in the renal pelvis and the proximal end in the bladder. The patient tolerated this well. She will need lithotripsy in the near future. She will return to the office tomorrow and will be scheduled. Ian Rivera MD
--- NOTE | 2019-01-25 17:15 | RAD ---
Date of service: 01/24/2019 PROCEDURE: Intraoperative Fluoroscopy. HISTORY: KIDNEY STONE FINDINGS: Fluoroscopic assistance was provided. Fluoroscopy time = 11.6 sec. Radiation dose = 0.36664 mGy-cm . Please refer to the operative report from FRANCISCA Currie.
== END 2019-01-24 17:27 | disposition home or self-care (01) ==
LOC: C.SDS 12:13
PROVIDERS: ATTEND Urology
DX: N20.2 Calculus of kidney with calculus of ureter (principal)
CPT/HCPCS: 52332; C1758; C1769; C2617; J0744

== ENCOUNTER → 2019-02-05 | Outpatient (CLI) | payer MEDICARE, MEDICAID | LOC: C.RADH 12:50 ==